=== PATIENT | female | born 1935 | race Two or more races ===

== ENCOUNTER 2016-10-06 19:34 | Inpatient (IN) | payer MEDICARE, OTHER ==
[~2016-10-06] VITALS: Ht 152.4 cm; Wt 54.9 kg
[2016-10-06] MEDS ORDERED: HALOPERIDOL LACTATE INJ 5 MG/ML VIAL ONE (19:45)
[2016-10-06] MEDS ORDERED: diphenhydrAMINE HCL 50 MG/ML VIAL ONE (19:45)
--- NOTE | 2016-10-06 19:45 | NUR ---
PT BB AMBULANCE FROM; INCREASE AGGITATION X 3 DAYS. PT REFUSES TO ANSWER QUESTIONS. RR EVEN AND UNLABORED. NO SOB NOTED. NAD NOTED. NO NVD AT THIS TIME. PT NOT DIAPHORETIC. PT GOWNED AND PLACED ON MONITOR WAITING FOR MD SHELLEY.
[2016-10-06] MEDS ORDERED: LORAZEPAM INJ 2 MG/ML VIAL ONE (19:46)
--- NOTE | 2016-10-06 19:46 | NUR ---
PT NOTED SCREAMING AND YELLING SPEAKING TO "SARAN"
--- NOTE | 2016-10-06 19:57 | NUR ---
LAB AT BEDSIDE FOR BLOOD DRAW.
[2016-10-06 20:00] LABS: BASOPHILS # (AUTO) 0.1 /CMM (0.0-0.2); BASOPHILS % (AUTO) 0.9 % (0.0-2.0); EOSINOPHILS % (AUTO) 0.2 % (0.0-6.0); HEMATOCRIT 40 % (33-45); HEMOGLOBIN 13.8 g/dL (11.5-14.8); LYMPHOCYTES # (AUTO) 2.7 /CMM (0.8-4.8); LYMPHOCYTES % (AUTO) 16.7 % (20.0-44.0); MEAN CORPUSCULAR HEMOGLOBIN 30 PG (26.0-33.0); MEAN CORPUSCULAR HGB CONC 35 g/dl (31.0-36.0); MEAN CORPUSCULAR VOLUME 87 fL (82-100); MONOCYTES # (AUTO) 1.2 /CMM (0.1-1.30); MONOCYTES % (AUTO) 7.4 % (2.0-12.0); NEUTROPHILS # (AUTO) 12.4 /CMM (1.8-8.9); NEUTROPHILS % (AUTO) 74.8 % (43.0-81.0); PLATELET COUNT (AUTO) 324 /CMM (150-450); RDW COEFFICIENT OF VARIATION 12.2 (11.5-15.0); RED BLOOD CELL COUNT(AUTO) 4.58 MIL/uL (4.0-5.2); WHITE BLOOD COUNT (AUTO) 16.4 K/uL (4.3-11.0)
[2016-10-06] MEDS ORDERED: HALOPERIDOL LACTATE INJ 5 MG/ML VIAL IM ONE (20:00)
[2016-10-06] MEDS ORDERED: diphenhydrAMINE HCL 50 MG/ML VIAL IM ONE (20:00)
[2016-10-06] MEDS ORDERED: LORAZEPAM INJ 2 MG/ML VIAL IM ONE (20:00)
[2016-10-06 20:07] LABS: CARBON DIOXIDE 23 mmol/L (21-32); CHLORIDE 99 mmol/L (98-107); CREATININE 1.6 mg/dL (0.6-1.3); GLUCOSE 180 mg/dL (74-106); POTASSIUM 4.1 mmol/L (3.5-5.1); SODIUM SERUM 140 mmol/L (136-145); UREA NITROGEN, BLOOD 31 mg/dL (7-18)
--- NOTE | 2016-10-06 20:07 | NUR ---
URINE COLLECTED. CALLED LAB FOR FELT FINISHER.
[2016-10-06 20:13] LABS: ALANINE AMINOTRANSFERASE 21 U/L (12-78); ALBUMIN 4.3 g/dL (3.4-5.0); ALCOHOL, BLOOD < 3 mg/dL (0-0); ALKALINE PHOSPHATASE 77 U/L (46-116); ASPARTATE AMINOTRANSFERASE 25 U/L (15-37); BILIRUBIN,DIRECT 0.2 mg/dL (0.0-0.2); BILIRUBIN,TOTAL 1.1 mg/dL (0.2-1.0); TOTAL PROTEIN, SERUM 8.6 g/dL (6.4-8.2)
[2016-10-06 20:17] LABS: APPEARANCE,URINE Turbid (CLEAR); BLOOD, URINE Large Ery/uL (NEGATIVE); COLOR,URINE Red (YELLOW); KETONES,URINE 15 (NEGATIVE); LEUKOCYTE ESTERASE ,URINE Moderate (NEGATIVE); NITRITE, URINE Negative (NEGATIVE); PH,URINE 8.5 (5.0-8.0); PROTEIN,URINE >=300 mg/dl (NEGATIVE); UGLUCOSE Negative (NEGATIVE); UROBILINOGEN,URINE 0.2 EU/dL (0.2)
[2016-10-06 20:17] LABS: ACETAMINOPHEN < 2 ug/ml (10-30); SALICYLATE < 2.8 mg/dL (2.8-20.0)
[2016-10-06 20:24] LABS: BILIRUBIN,URINE SMALL (NEGATIVE)
[2016-10-06] MEDS ORDERED: ZOLP5TAB2 PO (20:24)
[2016-10-06] MEDS ORDERED: ONDA4TAB5 PO (20:24)
[2016-10-06] MEDS ORDERED: MECL12.582 PO (20:24)
[2016-10-06] MEDS ORDERED: NYST15CR TP (20:24)
[2016-10-06] MEDS ORDERED: CLON0.1T PO (20:24)
[2016-10-06] MEDS ORDERED: ACET-868 PO (20:24)
--- NOTE | 2016-10-06 20:24 | NUR ---
PT APPEARS TO BE CALM AND RELAX AT THIS TIME. VSS
[2016-10-06 20:34] LABS: BACTERIA,URINE Moderate /HPF (None Seen); RBC,URINE TOO NUMEROUS TO COUN /HPF (0-2); SQUAMOUS EPITHELIAL CELL,UR Many /HPF (None Seen); WBC,URINE 21-50 /HPF (0-3)
[2016-10-06] MEDS ORDERED: CEFTRIAXONE 1GM BAG (ER ONLY) 50 ML IV ONE ×2 (21:30→22:02)
--- NOTE | 2016-10-06 22:01 | NUR ---
IV STARTED ON RIGHT WRIST 20G, LABS/ BLOOD CULTURES COLLECTED.
--- NOTE | 2016-10-06 22:01 | NUR ---
PT NOTED RELAX. AOX2
[2016-10-06] MEDS ORDERED: IV SET PRIMARY PUMP SET 1 EA INFUS.SET MC ONE (22:02)
--- NOTE | 2016-10-06 23:04 | NUR ---
Patient is resting comfortably in bed with eyes closed. Easily aroused. VSS
--- NOTE | 2016-10-06 23:08 | NUR ---
IV ROCPEHIN GIVEN ORDERED, ALLERGIES UPDATED AFTER MEDICATION ADMIN, INFORMED DR. ROSALES OF UPDATES ALLERGIES. PT WITH NO S/S ALLERGIC REACTION . NO SOB NOTED. VSS. PT APPEARS TO BE COMFORTABLE.
--- NOTE | 2016-10-06 23:09 | NUR ---
ART AT BEDSIDE FOR EVAL.
--- NOTE | 2016-10-06 23:10 | NUR ---
IV removed. Catheter intact and site benign. Pressure and 4x4 applied to site. No bleeding noted.
--- NOTE | 2016-10-06 23:35 | NUR ---
PT ASSIGNED TO [facility]IAH [facility]
--- NOTE | 2016-10-06 23:44 | NUR ---
REPORT GIVEN TO MARIAH MOFFETT FOR CONTINUE OF CARE
--- NOTE | 2016-10-07 00:07 | NUR ---
PT TRASNFERED VIA ILEANA LEMUS
[2016-10-07] MEDS ORDERED: MAG HYDROX/AL HYDROX/SIMETH 30 ML UDC PO PRN (00:30)
[2016-10-07] MEDS ORDERED: MAGNESIUM HYDROXIDE 30 ML UDC PO PRN (00:30)
--- NOTE | 2016-10-07 01:40 | NUR ---
GPS/RN NOTE: ADMITTED FROM [facility] ER, INITIALLY CAME FROM [facility], ARRIVED TO THE UNIT AROUND 0015 BROUGHT IN BY I MALE ER STAFF. PLACED PATIENT COMFORTABLY IN BED. SHOWS NO S/S OF ANY PAIN AT THIS TIME. RESPIRATION EVEN, BREATHING PATTERN NON-LABORED. NO APPARENT DISTRESS NOTED. PATIENT ADMITTED ON 5150 HOLD FOR GD. PER HOLD PATIENT HAVE INCREASING AGITATION AND COMBATIVENESS. UPON FACE TO FACE, PATIENT KNOWS HER NAME ONLY, CONFUSED, AGITATED,, DISORGANIZED, FIGHTING WITH NURSES, SCREAMING. THE 5150 WAS REVIEWED AND APPEARS TO REFLECT THE PRESENTATION OF THE PATIENT. AWAKE, ALERT, CONFUSED, KNOWS ONLY HER NAME. BELONGINGS WERE INVENTORIED AND CHECKED FOR CONTRABAND. PATIENT IS UNDER THE PSYCHIATRIC CARE OF DR. RUIZ, AND UNDER THE MEDICAL CARE OF DR. CAT. VALUABLES WERE CHECKED IN TO SAFE. SKIN ASSESSMENT DONE/PHOTO TAKEN. BED LOCKED AND PLACED ON LOWER POSITION. WILL CONTINUE TO MONITOR Q 15 MINS. TO MAINTAIN SAFETY.
[2016-10-07] MEDS ORDERED: ONDANSETRON HCL 4 MG/5 ML SOLUTION PO PRN (03:00)
[2016-10-07] MEDS ORDERED: OLAN5TAB3 PO (03:40)
[2016-10-07] MEDS ORDERED: HYDR-4077 PO (03:40)
[2016-10-07] MEDS ORDERED: CLON-418 PO (03:40)
[2016-10-07] MEDS ORDERED: AMLO5TAB4 PO (03:40)
[2016-10-07] MEDS ORDERED: ESCI5TAB PO (03:40)
[2016-10-07] MEDS ORDERED: QUET25TA PO (03:40)
[2016-10-07] MEDS ORDERED: ASPI81TA2 PO (03:40)
[2016-10-07] MEDS ORDERED: METO25TA6 PO (03:40)
[2016-10-07] MEDS ORDERED: PANT40TA2 PO (03:40)
[2016-10-07] MEDS ORDERED: ACET325T53 PO (03:40)
[2016-10-07] MEDS ORDERED: ZOLP5TAB2 PO (03:40)
[2016-10-07] MEDS ORDERED: ONDA4TAB8 SL (03:40)
[2016-10-07] MEDS ORDERED: MECL12.582 PO (03:40)
[2016-10-07 07:59] LABS: CHOLESTEROL 243 mg/dL (<200); HDL CHOLESTEROL 63 mg/dL (40-60); LDL 150 mg/dL (0-99); TRIGLYCERIDES 87 mg/dL (30-150)
[2016-10-07 08:00] VITALS: BP 105/60
[2016-10-07] MEDS ORDERED: LEVOFLOXACIN (500MG) 500 MG TABLET PO SCH (08:00)
[2016-10-07] MEDS: PANTOPRAZOLE 40 MG TABLET.DR PO SCH (08:48)
[2016-10-07] MEDS: LEVOFLOXACIN (250MG) 250 MG TABLET PO SCH (09:55)
[2016-10-07] MEDS ORDERED: IV NS 0.9% 1,000 ML IV ONE (12:00)
[2016-10-07 12:02] LABS: BASOPHILS % (AUTO) 0.3 % (0.0-2.0); EOSINOPHILS # (AUTO) 0.1 /CMM (0.0-0.7); EOSINOPHILS % (AUTO) 1.4 % (0.0-6.0); HEMATOCRIT 35 % (33-45); HEMOGLOBIN 11.7 g/dL (11.5-14.8); LYMPHOCYTES % (AUTO) 20.6 % (20.0-44.0); MEAN CORPUSCULAR HEMOGLOBIN 30 PG (26.0-33.0); MEAN CORPUSCULAR HGB CONC 34 g/dl (31.0-36.0); MEAN CORPUSCULAR VOLUME 88 fL (82-100); MONOCYTES # (AUTO) 0.9 /CMM (0.1-1.30); MONOCYTES % (AUTO) 9.5 % (2.0-12.0); NEUTROPHILS # (AUTO) 6.5 /CMM (1.8-8.9); NEUTROPHILS % (AUTO) 68.2 % (43.0-81.0); PLATELET COUNT (AUTO) 227 /CMM (150-450); RDW COEFFICIENT OF VARIATION 13.2 (11.5-15.0); RED BLOOD CELL COUNT(AUTO) 3.94 MIL/uL (4.0-5.2); WHITE BLOOD COUNT (AUTO) 9.5 K/uL (4.3-11.0)
[2016-10-07 12:19] LABS: ALBUMIN 3.5 g/dL (3.4-5.0); BILIRUBIN,TOTAL 0.7 mg/dL (0.2-1.0); CALCIUM, SERUM 8.8 mg/dL (8.5-10.1); CREATININE 1.3 mg/dL (0.6-1.3); POTASSIUM 3.2 mmol/L (3.5-5.1); TOTAL PROTEIN, SERUM 7.3 g/dL (6.4-8.2)
[2016-10-07] MEDS ORDERED: ONDANSETRON 4 MG TAB.RAPDIS SL PRN (12:30)
[2016-10-07] MEDS: DIVALPROEX SODIUM 125 MG CAP.SPRINK PO SCH ×3 (12:43→20:45)
[2016-10-07] MEDS: OLANZAPINE 2.5 MG TABLET PO SCH ×4 (12:43→17:04)
[2016-10-07] MEDS: ASPIRIN EC 81 MG TABLET.DR PO SCH (12:50)
[2016-10-07] MEDS: METOPROLOL TARTRATE 25 MG TABLET PO SCH ×2 (12:51→20:30)
[2016-10-07] MEDS: BOOST PLUS FOOD-CHOCLATE 237 ML BOX PO SCH ×2 (13:15→16:35)
--- NOTE | 2016-10-07 13:21 | NUR ---
GPS RN NOTE: NOTIFIED DR CAT PT LAB TROPONIN 0.120 K 3.2 ,BUN, CREATININE PT REFUSED IV FLUIND PT STATED"I CAN DRINK WATER " NEW T.O. ORDER FROM DR CAT KCL 40 MEQ ONCE PO, LOVENOX 40 MG DAILY, AND BOOST TROPONIN RECHECK AT 1700,PT VS STABLE PT EAT 75 % LUNCH AND DRINKING WATER. ORDER PLACED AND CARED OUT,WILL CONTINUE MONITORING FOR SAFETY AND BEHAVIOR Q 15 MIN
[2016-10-07] MEDS ORDERED: POTASSIUM CHLORIDE 20 MEQ TAB.PRT.SR PO ONE (13:30)
[2016-10-07] MEDS: ENOXAPARIN SODIUM 30 MG/0.3 ML DISP.SYRIN SQ SCH (14:03)
--- NOTE | 2016-10-07 14:11 | NUR ---
GPS RN NOTE: NOTIFIED DR RUIZ ELEVATED TROPONIN LEVEL PER MD HOLD MOHAN AND SELENE WILL CONTINUE MONITORING
--- NOTE | 2016-10-07 17:29 | NUR ---
GPS RN NOTE: PATIENT REFUSED BLOOD WORK FOR TROPONIN PT SCREAMING AND YELLING REFUSED MEDICATIONS PO EXPLAIN RISK AND BENEFITS DR STEPHANIA STANFORD
[2016-10-07] MEDS ORDERED: Z GUARD REMEDY 2 OZ OINT TP PRN (18:00)
[2016-10-07 20:41] VITALS: BP 106/61
--- NOTE | 2016-10-07 20:45 | NUR ---
GPS RN NOTE: PATIENT REFUSED MEDICATIONS, SCREAMING, YELLING AND COMBATIVE. EXPLAINED THE RISK AND BENEFITS. OFFERED X 3 ATTEMPTS. PATIENT SPIT OUT THE MEDICATIONS. WILL CONTINUE TO MONITOR [id number] FOR SAFETY
[2016-10-07] MEDS: ATORVASTATIN 10 MG TABLET PO SCH (21:20)
--- NOTE | 2016-10-07 22:30 | NUR ---
GPS RN NOTE: PATIENT CONTINUED TO BE UNCOOPERATIVE, REFUSED CARE, REFUSED MEDICATIONS, REFUSED WATER, REFUSED SNACKS, WILL CONTINUE TO REDIRECT AND WILL CONTINUE TO MONITOR
--- NOTE | 2016-10-08 06:21 | NUR ---
GPS RN NOTE: REDIRECTION PROVIDED AND PATIENT COOPERATED WITH THE LAB DRAW AND FINISHED 2 CUPS OF WATER. WILL CONTINUE TO MONITOR
[2016-10-08 07:17] LABS: BASOPHILS % (AUTO) 0.5 % (0.0-2.0); EOSINOPHILS # (AUTO) 0.1 /CMM (0.0-0.7); EOSINOPHILS % (AUTO) 1.1 % (0.0-6.0); HEMATOCRIT 35 % (33-45); HEMOGLOBIN 11.9 g/dL (11.5-14.8); LYMPHOCYTES # (AUTO) 2.6 /CMM (0.8-4.8); MEAN CORPUSCULAR HEMOGLOBIN 30 PG (26.0-33.0); MEAN CORPUSCULAR HGB CONC 34 g/dl (31.0-36.0); MEAN CORPUSCULAR VOLUME 89 fL (82-100); MONOCYTES # (AUTO) 0.9 /CMM (0.1-1.30); MONOCYTES % (AUTO) 9.2 % (2.0-12.0); NEUTROPHILS # (AUTO) 5.6 /CMM (1.8-8.9); NEUTROPHILS % (AUTO) 61.2 % (43.0-81.0); PLATELET COUNT (AUTO) 251 /CMM (150-450); RED BLOOD CELL COUNT(AUTO) 3.94 MIL/uL (4.0-5.2); WHITE BLOOD COUNT (AUTO) 9.2 K/uL (4.3-11.0)
[2016-10-08] MEDS: PANTOPRAZOLE 40 MG TABLET.DR PO SCH (07:30)
[2016-10-08 08:00] VITALS: BP 152/72
[2016-10-08] MEDS: BOOST PLUS FOOD-CHOCLATE 237 ML BOX PO SCH ×2 (08:00→16:04)
[2016-10-08 08:01] LABS: ALBUMIN 3.7 g/dL (3.4-5.0); BILIRUBIN,TOTAL 0.5 mg/dL (0.2-1.0); CREATININE 1.5 mg/dL (0.6-1.3); POTASSIUM 3.9 mmol/L (3.5-5.1); TOTAL PROTEIN, SERUM 7.9 g/dL (6.4-8.2)
--- NOTE | 2016-10-08 08:57 | NUR ---
RN-CO: Notified Dr Siddiqui regarding result of troponin level- 0.072 and BUN 49. Refusing to eat and medications. MD ordered 1/2 Normal Saline @ 100cc/ hr.. Noted and carried out.
--- NOTE | 2016-10-08 08:58 | NUR ---
RN-CO: Patient was seen and examined by Dr Arboleda( Sanipractic Physician) with orders noted and carried out.
[2016-10-08] MEDS: ASPIRIN EC 81 MG TABLET.DR PO SCH (09:00)
[2016-10-08] MEDS: DIVALPROEX SODIUM 125 MG CAP.SPRINK PO SCH ×2 (09:00→21:35)
[2016-10-08] MEDS: METOPROLOL TARTRATE 25 MG TABLET PO SCH ×2 (09:00→21:36)
[2016-10-08] MEDS ORDERED: IV NS 0.9% 1,000 ML IV ONE (09:00)
[2016-10-08] MEDS ORDERED: PANTOPRAZOLE 40 MG TABLET.DR PO SCH (09:00)
[2016-10-08] MEDS: OLANZAPINE 2.5 MG TABLET PO SCH ×2 (09:00→16:04)
[2016-10-08] MEDS: LEVOFLOXACIN (250MG) 250 MG TABLET PO SCH (09:00)
[2016-10-08] MEDS ORDERED: IV SET PRIMARY PUMP SET 1 EA INFUS.SET MC ONE (09:00)
[2016-10-08] MEDS ORDERED: IV NS 0.9% 1,000 ML BAG IV ONE (09:00)
[2016-10-08] MEDS ORDERED: IV NS 0.9% 1,000 ML IV PRN (09:00)
[2016-10-08] MEDS: ENOXAPARIN SODIUM 30 MG/0.3 ML DISP.SYRIN SQ SCH (09:02)
--- NOTE | 2016-10-08 09:45 | NUR ---
GPS RN NOTE: PATIENT IN BED DISORGANIZED, CONFUSED REFUSING TO EAT AND DRINK REFUSED MEDICATIONS PATIENT TALKING TO SELF VERBALLY ABUSIVE,YELLING AND SCREAMING WHEN APPROACHED. DR CAT AWARE PT LABS IV FLUIDS STARTED WITH 1: SITTER AT THE SIDE FOR SAFETY,FITNESS SERVICES MANAGER DR STRINGER SEEN PT, WILL CONTINUE MONITORING FOR SAFETY AND BEHAVIOR Q 15 MIN
--- NOTE | 2016-10-08 13:26 | NUR ---
GPS RN NOTE: NOTIFIED DR RUIZ PT NOT EATING, DRINKING AND REFUSING MEDICATIONS NO NEW ORDERS AT THIS TIME WILL CONTINUE MONITORING FOR SAFETY AND BEHAVIOR Q 15 MIN
[2016-10-08 16:00] VITALS: BP 139/85
[2016-10-08 21:06] VITALS: BP 170/88
[2016-10-08] MEDS: ATORVASTATIN 10 MG TABLET PO SCH (21:35)
[2016-10-09] MEDS: TEMAZEPAM 7.5 MG CAPSULE PO PRN (00:32)
[2016-10-09] MEDS: PANTOPRAZOLE 40 MG TABLET.DR PO SCH (07:30)
[2016-10-09 08:00] VITALS: BP 150/72
[2016-10-09] MEDS: BOOST PLUS FOOD-CHOCLATE 237 ML BOX PO SCH ×2 (08:00→17:00)
[2016-10-09] MEDS: ASPIRIN EC 81 MG TABLET.DR PO SCH (08:31)
[2016-10-09] MEDS: OLANZAPINE 2.5 MG TABLET PO SCH ×2 (08:32→17:00)
[2016-10-09] MEDS: METOPROLOL TARTRATE 25 MG TABLET PO SCH ×2 (08:32→20:38)
[2016-10-09] MEDS: LEVOFLOXACIN (250MG) 250 MG TABLET PO SCH (08:32)
[2016-10-09] MEDS: DIVALPROEX SODIUM 125 MG CAP.SPRINK PO SCH ×2 (08:32→20:37)
[2016-10-09] MEDS: ENOXAPARIN SODIUM 30 MG/0.3 ML DISP.SYRIN SQ SCH (08:34)
[2016-10-09] MEDS: VALSARTAN 80 MG TABLET PO SCH (10:30)
--- NOTE | 2016-10-09 13:28 | NUR ---
GPS RN NOTE: PATIENT AWAKE , CONFUSED, PARANOID, EASILY AGITATED, GUARDED, COMBATIVE, REFUSED MEDICATIONS REGARDLESS OF EXPLANATIONS, OFFERED X 3 BUT STILL REFUSED, NO SOB, NO S/S DISTRESS, DENIES PAIN OR DISCOMFORT, WILL CONTINUE MONITORING FOR SAFETY AND BEHAVIOR Q 15 MIN
[2016-10-09 16:00] VITALS: BP 161/85
--- NOTE | 2016-10-09 16:42 | NUR ---
Initial discharge plan: [place] [place] [address] . GREG attempted to speak with admission but no one was available. GREG will try again. GREG will also speak with pt's daughter Marina [phone] to confirm if pt. is able to return. GREG will follow up with MD and will help form safe and proper discharge. Addendum: 10/10/16 at 1216 by KE GARZA Spoke with Susi from facility and pt. is able to return.
--- NOTE | 2016-10-09 19:30 | NUR ---
GPS RN NOTE, RECEIVED PATIENT AWAKE AND IN BED, NO S/S OR COMPLAINTS OF PAIN AT THIS TIME. PATIENT IS DISPLAYING NO S/S OF APPARENT DISTRESS AT THIS TIME. PATIENT BREATHING IS UNLABORED WITH EQUAL RISE AND FALL OF THE CHEST. PATIENT IS ALERT AND ORIENTED X 1-2 ON ROOM AIR WITH A SPO2 95%. PATIENT SELECTIVE WITH MEDICATION, DEPRESSED, UNCOOPERATIVE, , CONFUSED AT TIMES, AND NEEDS REORIENTATION. PATIENT DENIES SUICIDE AND HOMICIDAL IDEATIONS AT THIS TIME. PATIENT ASSISTED WITH TURNING AND REPOSITIONING Q2HR AND PRN FOR COMFORT AND CIRCULATION. PATIENT HAS NO NEEDS AT THIS TIME. PATIENT EDUCATED ON THE USE OF THE CALL ACEVES. PATIENT BED SIDE RAILS UP X2 FOR SAFETY, BED IS LOCKED AND LOW WILL CONTINUE TO MONITOR AND MAINTAIN SAFETY.
[2016-10-09 20:00] VITALS: BP 157/80
[2016-10-09] MEDS: ATORVASTATIN 10 MG TABLET PO SCH (21:42)
[2016-10-10 07:45] LABS: BASOPHILS % (AUTO) 0.5 % (0.0-2.0); EOSINOPHILS # (AUTO) 0.1 /CMM (0.0-0.7); EOSINOPHILS % (AUTO) 1.8 % (0.0-6.0); HEMATOCRIT 35 % (33-45); HEMOGLOBIN 11.8 g/dL (11.5-14.8); LYMPHOCYTES # (AUTO) 1.3 /CMM (0.8-4.8); LYMPHOCYTES % (AUTO) 21.4 % (20.0-44.0); MEAN CORPUSCULAR HEMOGLOBIN 30 PG (26.0-33.0); MEAN CORPUSCULAR HGB CONC 34 g/dl (31.0-36.0); MEAN CORPUSCULAR VOLUME 89 fL (82-100); MONOCYTES # (AUTO) 0.6 /CMM (0.1-1.30); MONOCYTES % (AUTO) 9.2 % (2.0-12.0); NEUTROPHILS # (AUTO) 4.1 /CMM (1.8-8.9); NEUTROPHILS % (AUTO) 67.1 % (43.0-81.0); PLATELET COUNT (AUTO) 262 /CMM (150-450); RDW COEFFICIENT OF VARIATION 13.3 (11.5-15.0); RED BLOOD CELL COUNT(AUTO) 3.95 MIL/uL (4.0-5.2); WHITE BLOOD COUNT (AUTO) 6.1 K/uL (4.3-11.0)
[2016-10-10 08:00] VITALS: BP 149/93
[2016-10-10 08:03] LABS: ALANINE AMINOTRANSFERASE 29 U/L (12-78); ALBUMIN 3.7 g/dL (3.4-5.0); ALKALINE PHOSPHATASE 62 U/L (46-116); ASPARTATE AMINOTRANSFERASE 20 U/L (15-37); BILIRUBIN,TOTAL 0.4 mg/dL (0.2-1.0); CALCIUM, SERUM 9.5 mg/dL (8.5-10.1); CARBON DIOXIDE 30 mmol/L (21-32); CHLORIDE 111 mmol/L (98-107); GLUCOSE 139 mg/dL (74-106); MAGNESIUM 2.5 mg/dL (1.8-2.4); PHOSPHORUS 4.1 mg/dL (2.5-4.9); POTASSIUM 4.2 mmol/L (3.5-5.1); SODIUM SERUM 148 mmol/L (136-145); TOTAL PROTEIN, SERUM 7.8 g/dL (6.4-8.2); TROPONIN I 0.027 ng/mL (0.00-0.056); UREA NITROGEN, BLOOD 44 mg/dL (7-18)
[2016-10-10] MEDS: PANTOPRAZOLE 40 MG TABLET.DR PO SCH (08:30)
[2016-10-10] MEDS: BOOST PLUS FOOD-CHOCLATE 237 ML BOX PO SCH ×2 (08:30→16:48)
[2016-10-10] MEDS: METOPROLOL TARTRATE 25 MG TABLET PO SCH ×2 (08:31→21:04)
[2016-10-10] MEDS: ASPIRIN EC 81 MG TABLET.DR PO SCH (08:31)
[2016-10-10] MEDS: OLANZAPINE 2.5 MG TABLET PO SCH ×2 (08:31→16:52)
[2016-10-10] MEDS: DIVALPROEX SODIUM 125 MG CAP.SPRINK PO SCH ×2 (08:31→21:03)
[2016-10-10] MEDS: VALSARTAN 80 MG TABLET PO SCH (08:32)
[2016-10-10] MEDS: LEVOFLOXACIN (250MG) 250 MG TABLET PO SCH (08:32)
[2016-10-10] MEDS: ENOXAPARIN SODIUM 30 MG/0.3 ML DISP.SYRIN SQ SCH (08:33)
--- NOTE | 2016-10-10 12:15 | NUR ---
[id number]: NOTIFIED DR. CAT ABOUT LAB VALUES FOR TODAY 10/10/16: RBC= 3.95, NA= 148, CHLORIDE= 111, BUN= 44, MAGNESIUM= 2.5. NO NEW ORDERS GIVEN AT THIS TIME. Addendum: 10/10/16 at 1713 by ISAIAH WHITE RN DR. CAT ENCOURAGE FLUID INTAKE
[2016-10-10] MEDS: clonazePAM 0.5 MG TABLET PO PRN (14:54)
--- NOTE | 2016-10-10 14:54 | NUR ---
LHJ-[id number]: GAVE KLONOPIN 0.5 MG PO DUE TO SEVERE ANXIETY UPON PT REQUEST AND WILL CONTINUE TO MONITOR FOR EFFECTIVENESS OF MEDICATION
[2016-10-10 16:18] VITALS: BP 138/73
[2016-10-10] MEDS: ACETAMINOPHEN 325 MG TABLET PO PRN (16:48)
--- NOTE | 2016-10-10 16:48 | NUR ---
ERI-RT-[id number]: GAVE TYLENOL 650 MG PO DUE TO GENERALIZED PAIN 5/10 UPON PT REQUEST AND WILL CONTINUE TO MONITOR FOR EFFECTIVENESS OF MEDICATION
[2016-10-10 20:00] VITALS: BP 112/63
[2016-10-10 20:27] VITALS: BP 112/63
[2016-10-10] MEDS: ATORVASTATIN 10 MG TABLET PO SCH (21:03)
[2016-10-11] MEDS: BOOST PLUS FOOD-CHOCLATE 237 ML BOX PO SCH ×2 (08:44→17:22)
[2016-10-11] MEDS: DIVALPROEX SODIUM 125 MG CAP.SPRINK PO SCH ×2 (08:47→16:55)
[2016-10-11] MEDS: METOPROLOL TARTRATE 25 MG TABLET PO SCH ×2 (08:47→20:31)
[2016-10-11] MEDS: LEVOFLOXACIN (250MG) 250 MG TABLET PO SCH (08:47)
[2016-10-11] MEDS: OLANZAPINE 2.5 MG TABLET PO SCH ×3 (08:47→16:57)
[2016-10-11] MEDS: VALSARTAN 80 MG TABLET PO SCH (08:48)
[2016-10-11] MEDS: ASPIRIN EC 81 MG TABLET.DR PO SCH (08:48)
[2016-10-11] MEDS: PANTOPRAZOLE 40 MG TABLET.DR PO SCH (08:48)
[2016-10-11 08:53] VITALS: BP 166/78
[2016-10-11] MEDS: ENOXAPARIN SODIUM 30 MG/0.3 ML DISP.SYRIN SQ SCH (09:11)
[2016-10-11 16:23] VITALS: BP 141/74
[2016-10-11 20:00] VITALS: BP 163/79
[2016-10-11] MEDS: ATORVASTATIN 10 MG TABLET PO SCH (20:31)
[2016-10-11] MEDS: TEMAZEPAM 7.5 MG CAPSULE PO PRN (20:32)
--- NOTE | 2016-10-11 20:32 | NUR ---
GPS/RN NOTE: PATIENT REQUESTING FOR HER NIGHT MEDS. PATIENT IS NOISY, SCREAMING. TEMAZEPAM 7.5 MG CAP 1 PO GIVEN.
--- NOTE | 2016-10-12 03:41 | NUR ---
GPS/RN NOTE: AWAKE, SCREAMING, OFFERED KLONOPIN, PATIENT RESPONDED, " NO."
[2016-10-12 06:30] LABS: BASOPHILS % (AUTO) 0.5 % (0.0-2.0); EOSINOPHILS # (AUTO) 0.4 /CMM (0.0-0.7); EOSINOPHILS % (AUTO) 4.2 % (0.0-6.0); HEMATOCRIT 34 % (33-45); HEMOGLOBIN 11.4 g/dL (11.5-14.8); LYMPHOCYTES # (AUTO) 3.8 /CMM (0.8-4.8); MEAN CORPUSCULAR HEMOGLOBIN 30 PG (26.0-33.0); MEAN CORPUSCULAR HGB CONC 33 g/dl (31.0-36.0); MEAN CORPUSCULAR VOLUME 89 fL (82-100); MONOCYTES # (AUTO) 0.8 /CMM (0.1-1.30); MONOCYTES % (AUTO) 7.8 % (2.0-12.0); NEUTROPHILS # (AUTO) 4.9 /CMM (1.8-8.9); NEUTROPHILS % (AUTO) 49.5 % (43.0-81.0); PLATELET COUNT (AUTO) 262 /CMM (150-450); RDW COEFFICIENT OF VARIATION 12.9 (11.5-15.0); RED BLOOD CELL COUNT(AUTO) 3.84 MIL/uL (4.0-5.2); WHITE BLOOD COUNT (AUTO) 9.9 K/uL (4.3-11.0)
[2016-10-12 06:55] LABS: CALCIUM, SERUM 9.1 mg/dL (8.5-10.1); CARBON DIOXIDE 29 mmol/L (21-32); CHLORIDE 110 mmol/L (98-107); CREATININE 1.1 mg/dL (0.6-1.3); GLUCOSE 115 mg/dL (74-106); POTASSIUM 4.4 mmol/L (3.5-5.1); SODIUM SERUM 147 mmol/L (136-145); UREA NITROGEN, BLOOD 34 mg/dL (7-18)
[2016-10-12 08:00] VITALS: BP 124/68
[2016-10-12] MEDS: BOOST PLUS FOOD-CHOCLATE 237 ML BOX PO SCH ×2 (08:10→17:17)
[2016-10-12] MEDS: DIVALPROEX SODIUM 125 MG CAP.SPRINK PO SCH ×3 (08:11→17:00)
[2016-10-12] MEDS: OLANZAPINE 2.5 MG TABLET PO SCH ×3 (08:12→17:00)
[2016-10-12] MEDS: ASPIRIN EC 81 MG TABLET.DR PO SCH (08:12)
[2016-10-12] MEDS: PANTOPRAZOLE 40 MG TABLET.DR PO SCH (08:12)
[2016-10-12] MEDS: VALSARTAN 80 MG TABLET PO SCH (08:12)
[2016-10-12] MEDS: METOPROLOL TARTRATE 25 MG TABLET PO SCH ×2 (08:12→20:44)
[2016-10-12] MEDS: LEVOFLOXACIN (250MG) 250 MG TABLET PO SCH (08:12)
[2016-10-12] MEDS: ENOXAPARIN SODIUM 30 MG/0.3 ML DISP.SYRIN SQ SCH (08:26)
[2016-10-12 16:00] VITALS: BP 129/77
--- NOTE | 2016-10-12 17:17 | NUR ---
Pt. refused to take Depakote sprinkle and Zyprexa po, explained on the importance and offered 3x and pt. still refusing and said "Get out from me". Dr. Lucero is aware.
[2016-10-12] MEDS: CEPHALEXIN MONOHYDRATE 250 MG CAPSULE PO SCH (18:00)
[2016-10-12 20:00] VITALS: BP 142/90
[2016-10-12] MEDS: ATORVASTATIN 10 MG TABLET PO SCH (20:44)
[2016-10-13] MEDS: CEPHALEXIN MONOHYDRATE 250 MG CAPSULE PO SCH ×2 (06:32→18:19)
--- NOTE | 2016-10-13 07:30 | NUR ---
RECEIVED PT. ALERT AND ORIENTED X2. NO SPECIFIC COMPLAINTS OFFERED.
[2016-10-13 08:00] VITALS: BP 148/67
--- NOTE | 2016-10-13 09:00 | NUR ---
YELLING ON WAY TO DINING ROOM.CALMED DOWN AND REASSURED.
[2016-10-13] MEDS: DIVALPROEX SODIUM 125 MG CAP.SPRINK PO SCH ×2 (09:40→18:19)
[2016-10-13] MEDS: ASPIRIN EC 81 MG TABLET.DR PO SCH (09:40)
[2016-10-13] MEDS: OLANZAPINE 2.5 MG TABLET PO SCH ×3 (09:40→18:19)
[2016-10-13] MEDS: PANTOPRAZOLE 40 MG TABLET.DR PO SCH (09:40)
[2016-10-13] MEDS: ENOXAPARIN SODIUM 30 MG/0.3 ML DISP.SYRIN SQ SCH (09:42)
[2016-10-13] MEDS: METOPROLOL TARTRATE 25 MG TABLET PO SCH ×2 (09:51→21:04)
[2016-10-13] MEDS: VALSARTAN 80 MG TABLET PO SCH (09:51)
[2016-10-13] MEDS: BOOST PLUS FOOD-CHOCLATE 237 ML BOX PO SCH ×2 (09:51→18:26)
--- NOTE | 2016-10-13 11:30 | NUR ---
DR. REY IN TO SEE PT.
--- NOTE | 2016-10-13 13:30 | NUR ---
IN DINING RM. IN [facility] CHAIR FOR SEVERAL HRS.
--- NOTE | 2016-10-13 15:30 | NUR ---
DR. CAT IN TO SEE PT.
[2016-10-13 15:59] VITALS: BP 128/57
--- NOTE | 2016-10-13 18:00 | NUR ---
NO CHANGE IN STATUS.
[2016-10-13 20:00] VITALS: BP 130/69
--- NOTE | 2016-10-13 20:00 | NUR ---
Gps/Rn notes patient in bed, asleep but arousable. no s/s of sob or distress. provide and offered fluids. will monitor any s/s of atb adverse reaction,
[2016-10-13] MEDS: ATORVASTATIN 10 MG TABLET PO SCH (21:04)
[2016-10-14] MEDS: ACETAMINOPHEN 325 MG TABLET PO PRN (01:20)
[2016-10-14] MEDS: TEMAZEPAM 7.5 MG CAPSULE PO PRN (01:20)
--- NOTE | 2016-10-14 01:20 | NUR ---
Gps/Rn notes patient requesting for medication to sleep. and pain medication for back pain. will continue to monitor and pain effectiveness.
[2016-10-14] MEDS: CEPHALEXIN MONOHYDRATE 250 MG CAPSULE PO SCH ×2 (06:10→17:17)
[2016-10-14] MEDS: PANTOPRAZOLE 40 MG TABLET.DR PO SCH (07:57)
[2016-10-14 08:00] VITALS: BP 145/73
[2016-10-14] MEDS: DIVALPROEX SODIUM 125 MG CAP.SPRINK PO SCH ×2 (08:05→16:05)
[2016-10-14] MEDS: OLANZAPINE 2.5 MG TABLET PO SCH ×3 (08:05→16:05)
[2016-10-14] MEDS: ASPIRIN EC 81 MG TABLET.DR PO SCH (08:05)
[2016-10-14] MEDS: METOPROLOL TARTRATE 25 MG TABLET PO SCH ×2 (08:06→21:26)
[2016-10-14] MEDS: VALSARTAN 80 MG TABLET PO SCH (08:07)
[2016-10-14] MEDS: BOOST PLUS FOOD-CHOCLATE 237 ML BOX PO SCH ×2 (08:08→16:12)
--- NOTE | 2016-10-14 10:30 | NUR ---
[id number]: NOTIFIED DR. CAT ABOUT LAB VALUES ON 10/12/16: RBC= 3.84, HGB= 11.4, NA= 147, YVEHJBCC=693, BUN= 34. DR. CAT ORDERED CBC AND BMP FOR TOMORROW ON 10/15/16
[2016-10-14 16:04] VITALS: BP 144/72
--- NOTE | 2016-10-14 17:10 | NUR ---
[id number]: NOTIFIED DR. CAT AND DR. REY ABOUT EKG RESULTS AND NO NEW ORDERS GIVEN AT THIS TIME
[2016-10-14 20:35] VITALS: BP 162/70
[2016-10-14] MEDS: ATORVASTATIN 10 MG TABLET PO SCH (21:26)
[2016-10-14 23:00] VITALS: BP 136/72
[2016-10-15] MEDS: CEPHALEXIN MONOHYDRATE 250 MG CAPSULE PO SCH ×2 (05:43→17:18)
[2016-10-15] MEDS: PANTOPRAZOLE 40 MG TABLET.DR PO SCH (08:02)
[2016-10-15] MEDS: ASPIRIN EC 81 MG TABLET.DR PO SCH (08:02)
[2016-10-15] MEDS: DIVALPROEX SODIUM 125 MG CAP.SPRINK PO SCH ×2 (08:03→16:17)
[2016-10-15] MEDS: OLANZAPINE 2.5 MG TABLET PO SCH ×2 (08:04→16:18)
[2016-10-15] MEDS: METOPROLOL TARTRATE 25 MG TABLET PO SCH ×2 (08:07→21:52)
[2016-10-15] MEDS: VALSARTAN 80 MG TABLET PO SCH (08:08)
[2016-10-15] MEDS: BOOST PLUS FOOD-CHOCLATE 237 ML BOX PO SCH ×2 (08:17→16:26)
[2016-10-15 16:18] VITALS: BP 152/74
[2016-10-15 18:19] LABS: BASOPHILS % (AUTO) 0.3 % (0.0-2.0); EOSINOPHILS # (AUTO) 0.3 /CMM (0.0-0.7); EOSINOPHILS % (AUTO) 3.4 % (0.0-6.0); HEMATOCRIT 36 % (33-45); HEMOGLOBIN 12.1 g/dL (11.5-14.8); LYMPHOCYTES % (AUTO) 27.4 % (20.0-44.0); MEAN CORPUSCULAR HEMOGLOBIN 30 PG (26.0-33.0); MEAN CORPUSCULAR HGB CONC 34 g/dl (31.0-36.0); MEAN CORPUSCULAR VOLUME 88 fL (82-100); MONOCYTES # (AUTO) 0.6 /CMM (0.1-1.30); MONOCYTES % (AUTO) 7.5 % (2.0-12.0); NEUTROPHILS # (AUTO) 4.6 /CMM (1.8-8.9); NEUTROPHILS % (AUTO) 61.4 % (43.0-81.0); PLATELET COUNT (AUTO) 252 /CMM (150-450); RDW COEFFICIENT OF VARIATION 12.3 (11.5-15.0); RED BLOOD CELL COUNT(AUTO) 4.02 MIL/uL (4.0-5.2); WHITE BLOOD COUNT (AUTO) 7.5 K/uL (4.3-11.0)
[2016-10-15 18:30] LABS: CARBON DIOXIDE 30 mmol/L (21-32); CHLORIDE 105 mmol/L (98-107); GLUCOSE 154 mg/dL (74-106); POTASSIUM 4.5 mmol/L (3.5-5.1); SODIUM SERUM 141 mmol/L (136-145); UREA NITROGEN, BLOOD 25 mg/dL (7-18)
[2016-10-15] MEDS: DOCUSATE SODIUM 100 MG CAPSULE PO SCH (19:58)
[2016-10-15] MEDS: LACTULOSE 10 G/15 ML UDC (PYXIS) PO SCH (19:59)
[2016-10-15 20:29] VITALS: BP 153/90
[2016-10-15] MEDS: ATORVASTATIN 10 MG TABLET PO SCH (21:52)
[2016-10-15] MEDS: TEMAZEPAM 7.5 MG CAPSULE PO PRN (21:55)
[2016-10-16] MEDS: ACETAMINOPHEN 325 MG TABLET PO PRN ×2 (01:46→21:34)
[2016-10-16] MEDS: clonazePAM 0.5 MG TABLET PO PRN (02:50)
[2016-10-16] MEDS: CEPHALEXIN MONOHYDRATE 250 MG CAPSULE PO SCH ×2 (06:36→17:05)
[2016-10-16] MEDS: PANTOPRAZOLE 40 MG TABLET.DR PO SCH (07:41)
[2016-10-16 08:00] VITALS: BP 132/61
[2016-10-16] MEDS: METOPROLOL TARTRATE 25 MG TABLET PO SCH ×2 (08:31→21:35)
[2016-10-16] MEDS: ASPIRIN EC 81 MG TABLET.DR PO SCH (08:32)
[2016-10-16] MEDS: DIVALPROEX SODIUM 125 MG CAP.SPRINK PO SCH ×2 (08:32→17:06)
[2016-10-16] MEDS: OLANZAPINE 2.5 MG TABLET PO SCH ×2 (08:32→17:05)
[2016-10-16] MEDS: DOCUSATE SODIUM 100 MG CAPSULE PO SCH ×2 (08:32→17:05)
[2016-10-16] MEDS: VALSARTAN 80 MG TABLET PO SCH (08:33)
[2016-10-16] MEDS: BOOST PLUS FOOD-CHOCLATE 237 ML BOX PO SCH ×2 (08:34→17:09)
[2016-10-16] MEDS: LACTULOSE 10 G/15 ML UDC (PYXIS) PO SCH ×2 (10:38→17:05)
[2016-10-16 16:00] VITALS: BP 103/52
[2016-10-16 19:53] VITALS: BP 112/48
[2016-10-16] MEDS: ATORVASTATIN 10 MG TABLET PO SCH (21:34)
[2016-10-16] MEDS: TEMAZEPAM 7.5 MG CAPSULE PO PRN (21:36)
--- NOTE | 2016-10-17 | NUR ---
GPS RN NOTES: OBSERVED PATIENT TO BE ANXIOUS. SHE IS CONSTANTLY TALKING ABOUT HER BOWEL MOVEMENTS. CHECKED PATIENT'S BLOOD PRESSURE- 100/58 HR-60. KLONOPIN NOT GIVEN PATIENTS VITALS ARE SOMEHOW LOW. WASTED KLONOPIN MEDICATION ON THE PYXIS. STAYED WITH THE PATIENT AND ENCOURAGED HER TO VERBALIZE HER FEELINGS AND CONCERNS TO LOWER DOWN HER ANXIETY LEVEL. ASSURED HER OF THE NURSES PRESENCE. ASSISTED PATIENT WITH HER NEEDS. KEPT HER WARM AND DRY. PLACED CALL ACEVES WITHIN HER REACH. WILL CONTINUE TO MONITOR PATIENT FOR MOOD SAFETY AND BEHAVIOR.
[2016-10-17] MEDS: CEPHALEXIN MONOHYDRATE 250 MG CAPSULE PO SCH ×2 (06:12→15:55)
[2016-10-17 08:00] VITALS: BP 131/52
[2016-10-17] MEDS: LACTULOSE 10 G/15 ML UDC (PYXIS) PO SCH ×2 (08:10→15:56)
[2016-10-17] MEDS: DIVALPROEX SODIUM 125 MG CAP.SPRINK PO SCH ×3 (08:11→15:55)
[2016-10-17] MEDS: OLANZAPINE 2.5 MG TABLET PO SCH ×2 (08:11→15:55)
[2016-10-17] MEDS: METOPROLOL TARTRATE 25 MG TABLET PO SCH (08:11)
[2016-10-17] MEDS: ASPIRIN EC 81 MG TABLET.DR PO SCH (08:11)
[2016-10-17] MEDS: VALSARTAN 80 MG TABLET PO SCH (08:11)
[2016-10-17] MEDS: PANTOPRAZOLE 40 MG TABLET.DR PO SCH (08:12)
[2016-10-17] MEDS: DOCUSATE SODIUM 100 MG CAPSULE PO SCH ×2 (08:12→15:54)
[2016-10-17] MEDS: BOOST PLUS FOOD-CHOCLATE 237 ML BOX PO SCH ×2 (08:13→15:54)
[2016-10-17] MEDS: clonazePAM 0.5 MG TABLET PO PRN (12:00)
--- NOTE | 2016-10-17 14:13 | NUR ---
Pt. was referred and accepted to [facility] [address], [place] [address] but medical doctor requested other facilities to be faxed.
--- NOTE | 2016-10-17 14:14 | NUR ---
Pt was referred and accepted to [facility] [id number] [facility] [place] [address]; per Michelle from facility.
--- NOTE | 2016-10-17 14:15 | NUR ---
Discharge note: Pt. will discharge to [facility] [address] [facility] [place] [address]; via [facility]. Pt's daughter, Marina [phone] has been notified and agreed with the discharge plan. Pt. is calm and cooperative and denies suicidal/homicidal ideations. Pt. will be followed by Dr. Siddiqui Leon [phone] and Krishna Dsouza.[phone]. Discharge paperwork has been signed and discharge instructions will be provided to the accepting facility.
[2016-10-17 15:20] VITALS: BP 124/62
[2016-10-17 16:00] VITALS: BP 114/49
--- NOTE | 2016-10-17 17:19 | NUR ---
pt discharge today by dr. Lucero. furnace fitter dr. bro aware and agrees with discharge placement. pt going to [facility] [id number] [facility] [place] [address]; via [facility]. Pt's daughter, Marina [phone] has been notified and agreed with the discharge plan. Report given to receiving nurse, ALEISHA Mtz. Pt is alert oriented x 1 and ambulatory. she is calm and cooperative. no behavioral problem noted. no acute distress noted. exit care and medication reconciliation completed. skin assessment and pictures of wound taken. pt has belongings on the checklist but unable to located any of it. pt left in stable condition.
== END 2016-10-17 17:04 | DRG 885 ==
LOC: ER 19:38 → GPS 23:45
PROVIDERS: ADMIT Psychiatry & Neurology Psychiatry; ATTEND Internal Medicine
DX: F39 Unspecified mood [affective] disorder (principal); I11.0 Hypertensive heart disease with heart failure; I21.4 Non-ST elevation (NSTEMI) myocardial infarction; N39.0 Urinary tract infection, site not specified; E86.0 Dehydration; E87.6 Hypokalemia; K21.9 Gastro-esophageal reflux disease without esophagitis; Z87.891 Personal history of nicotine dependence; Z96.642 Presence of left artificial hip joint; I25.10 Atherosclerotic heart disease of native coronary artery without angina pectoris; M19.90 Unspecified osteoarthritis, unspecified site; F29 Unspecified psychosis not due to a substance or known physiological condition; R73.03 Prediabetes; I50.9 Heart failure, unspecified; B96.4 Proteus (mirabilis) (morganii) as the cause of diseases classified elsewhere
CPT/HCPCS: 36415; 71010-TC; 80048-TC; 80053-TC; 80061-TC; 80076-TC; 80164-TC; 80305; 81000-TC; 83605-TC; 83735-TC; 84100-TC; 84484-TC; 85025-TC; 87040-TC; 87081-TC; 87086-TC; 87186-TC; 93307-TC; 97001-TC; 97116-TC; 97530-TC; A4606; G0480; J0696; J1200; J1630; J1650; J2060; J7030; Q0162; Z7610

== ENCOUNTER 2018-12-10 14:20 | Inpatient (IN) | payer MEDICARE, OTHER ==
[~2018-12-10] VITALS: Ht 162.6 cm; Wt 55.8 kg
[~2018-12-10 14:20] MED LIST: ACET325T53 PO; AMLO5TAB4 PO; ASPI-1169 PO; CLON-418 PO; HYDR-4077 PO; MECL12.582 PO; METO25TA6 PO; ONDA4TAB8 SL; PANT40TA2 PO
--- NOTE | 2018-12-10 14:38 | NUR ---
PT [facility] TO ED BED 12 FOR INCREASING AGITATION, REFUSING MEDS, PT IS AAOX1, NOT IN RESPIRATORY DISTRESS, HOOKED TO MONITOR, KEPT RESTED AND COMFORTABLE, WILL CONTINUE TO MONITOR.
--- NOTE | 2018-12-10 14:50 | NUR ---
SEEN AND EXAMINED BY .
[2018-12-10] MEDS ORDERED: FLUO10TA PO (15:00)
[2018-12-10] MEDS ORDERED: DIVA125C5 PO (15:00)
[2018-12-10] MEDS ORDERED: MAGN400O6 PO (15:00)
[2018-12-10] MEDS ORDERED: ACET1TAB12 PO (15:00)
[2018-12-10] MEDS ORDERED: PRED5DRO16 LEFTEYE (15:00)
[2018-12-10] MEDS ORDERED: LACT10SO PO (15:00)
[2018-12-10] MEDS ORDERED: ATOR40TA PO (15:00)
[2018-12-10] MEDS ORDERED: LOSA50TA39 PO (15:00)
[2018-12-10] MEDS ORDERED: ASCO500T9 PO (15:00)
[2018-12-10] MEDS ORDERED: DICL100G26 TP (15:00)
[2018-12-10] MEDS ORDERED: LORA0.5T PO (15:00)
[2018-12-10] MEDS ORDERED: BROM3DRO LEFTEYE (15:00)
[2018-12-10] MEDS ORDERED: ONDA4TAB10 PO (15:00)
[2018-12-10] MEDS ORDERED: NITR100C PO (15:00)
[2018-12-10] MEDS ORDERED: OLANZAPINE 10 MG VIAL IM ONE ×2 (15:00→15:01)
[2018-12-10] MEDS ORDERED: POLY17PO4 PO (15:00)
[2018-12-10] MEDS ORDERED: NEOM7.5D3 RIGHTEYE (15:00)
[2018-12-10] MEDS ORDERED: CARB-93 PO (15:00)
[2018-12-10] MEDS ORDERED: DIPH50CA4 PO (15:00)
[2018-12-10] MEDS ORDERED: OFLO5DRO5 LEFTEYE (15:00)
[2018-12-10] MEDS ORDERED: DOCU-141 PO (15:00)
[2018-12-10] MEDS ORDERED: CALC-7 PO (15:00)
--- NOTE | 2018-12-10 15:05 | NUR ---
URINE SPECIMEN COLLECTED AND SENT TO LAB.
[2018-12-10 15:13] LABS: BILIRUBIN,URINE SMALL (NEGATIVE); BLOOD, URINE Trace-intact Ery/uL (NEGATIVE); COLOR,URINE Yellow (YELLOW); KETONES,URINE 40 (NEGATIVE); LEUKOCYTE ESTERASE ,URINE Negative (NEGATIVE); NITRITE, URINE Negative (NEGATIVE); PROTEIN,URINE 100 mg/dl (NEGATIVE); UGLUCOSE Negative (NEGATIVE); UROBILINOGEN,URINE 0.2 EU/dL (0.2)
--- NOTE | 2018-12-10 15:14 | NUR ---
IV LINE ESTABLISHED, BLOOD DRAWNED AND SENT TO LAB.
[2018-12-10 15:23] LABS: APPEARANCE,URINE HAZY (CLEAR); BACTERIA,URINE Few /HPF (None Seen); SQUAMOUS EPITHELIAL CELL,UR Moderate /HPF (None Seen)
[2018-12-10 15:24] LABS: BASOPHILS % (AUTO) 0.6 % (0.0-2.0); EOSINOPHILS % (AUTO) 0.5 % (0.0-6.0); HEMATOCRIT 36 % (33-45); HEMOGLOBIN 12.3 g/dL (11.5-14.8); LYMPHOCYTES # (AUTO) 1.7 /CMM (0.8-4.8); LYMPHOCYTES % (AUTO) 22.3 % (20.0-44.0); MEAN CORPUSCULAR HGB CONC 34 g/dl (31.0-36.0); MEAN CORPUSCULAR VOLUME 92 fL (82-100); MONOCYTES % (AUTO) 13.1 % (2.0-12.0); NEUTROPHILS # (AUTO) 4.8 /CMM (1.8-8.9); NEUTROPHILS % (AUTO) 63.5 % (43.0-81.0); PLATELET COUNT (AUTO) 202 /CMM (150-450); RED BLOOD CELL COUNT(AUTO) 3.96 MIL/uL (4.0-5.2); WHITE BLOOD COUNT (AUTO) 7.6 K/uL (4.3-11.0)
[2018-12-10] MEDS ORDERED: IV NS 0.9% 500 ML BAG IV ONE (15:30)
[2018-12-10 15:35] LABS: CALCIUM, SERUM 9.1 mg/dL (8.5-10.1); CARBON DIOXIDE 24 mmol/L (21-32); CHLORIDE 105 mmol/L (98-107); CREATININE 1.2 mg/dL (0.6-1.3); GLUCOSE 157 mg/dL (74-106); POTASSIUM 3.3 mmol/L (3.5-5.1); SODIUM SERUM 145 mmol/L (136-145); UREA NITROGEN, BLOOD 20 mg/dL (7-18)
[2018-12-10 15:40] LABS: ALANINE AMINOTRANSFERASE 30 U/L (12-78); ALBUMIN 3.5 g/dL (3.4-5.0); ALKALINE PHOSPHATASE 63 U/L (46-116); ASPARTATE AMINOTRANSFERASE 17 U/L (15-37); BILIRUBIN,DIRECT 0.2 mg/dL (0.0-0.2); BILIRUBIN,TOTAL 0.8 mg/dL (0.2-1.0); TOTAL PROTEIN, SERUM 7.5 g/dL (6.4-8.2)
[2018-12-10 15:41] LABS: ALCOHOL, BLOOD < 3 mg/dL (0-0); SALICYLATE < 2.8 mg/dL (2.8-20.0)
--- NOTE | 2018-12-10 15:56 | NUR ---
LACTIC 4.0
[2018-12-10] MEDS ORDERED: AZTREONAM 1 G in IV NS 0.9% 100 ML IV ONE (16:30)
[2018-12-10] MEDS ORDERED: VANCOMYCIN 1 GM in IV D5W 250 ML IV ONE (16:30)
[2018-12-10] MEDS ORDERED: LEVOFLOXACIN 750 MG /D5W 150ML 150 ML IV ONE ×2 (16:30→17:15)
[2018-12-10] MEDS ORDERED: IV NS 0.9% 1,000 ML BAG IV ONE (16:30)
--- NOTE | 2018-12-10 16:51 | NUR ---
CALLED FOR BED, ARJUN IN MOVE SHEET, GOING TO BED 119-1
[2018-12-10 18:00] VITALS: BP 130/75
--- NOTE | 2018-12-10 18:30 | NUR ---
RN NOTES PATIENT WAS BROUGHT TO THE UNIT VIA GURNEY FROM THE ED. SHE WAS BROUGHT TO THE ED FROM [facility] FOR INCREASED AGITATION AND REFUSAL OF MEDICATIONS, DIAGNOSED SEPTIC SHOCK. LACTIC ACID LEVEL WAS 4.0. REPORT WAS RECEIVED FROM ALEISHA RIVERA. PATIENT IS RESTLESS AND COMBATIVE, YELLING PROFANITIES. SHE IS AOX1, DOES NOT FOLLOW COMMANDS. PATIENT HAS AN 18G SALINE LOCK ON RFA, PATENT. PATIENTS GOWN AND LINENS HAVE BEEN CHANGED. BED IS IN LOWEST AND LOCKED POSITION, CALL LIGHT WITHIN REACH, SAFETY MEASURES IN PLACE. PATIENT IS ON ROOM AIR, O2 SAT AT 96%. SHE IS NOW RESTING QUIETLY. WILL ENDORSE TO COMMERCIAL APPRAISER RN.
--- NOTE | 2018-12-10 18:35 | NUR ---
RN NOTES NOTIFIED DR. RAUL CAT OF PATIENT'S ADMISSION. DR CAT SAID HE IS GOING TO COME TONIGHT TO SEE PATIENT AND PUT IN ORDERS.
--- NOTE | 2018-12-10 18:39 | NUR ---
SPOKE WITH JERRICA SIMON DOESNOT WANT TO GIVE ADMITTING ORDERS SINCE HE DIDNOT RECEIVED ANY NOTIFICATION FROM ER. PER ER IT IS PIPPA CAT,ADMITTING WILL SEND NEW PAPAER WORK.
[2018-12-10 18:43] VITALS: BP 130/75
--- NOTE | 2018-12-10 18:53 | NUR ---
NOTIFIED PRIMARY RN TO OBTAIN ORDERS FROM DR. CAT.WILL ENDORSE TO NIGHT MANAGER CLIENT SUPPORT TO FF.UP.
[2018-12-10] MEDS ORDERED: ONDANSETRON HCL/PF 4 MG/2 ML VIAL IV PRN (20:00)
--- NOTE | 2018-12-10 20:00 | NUR ---
RN NOTES RECEIVED PATIENT REPORT FROM AM RN. PATIENT IS RESTLESS AND COMBATIVE, YELLING, TALKING TO HERSELF . SHE IS AOX1, DOES NOT FOLLOW COMMANDS. PATIENT HAS AN 18G SALINE LOCK ON RFA, REDDENED, INFILTRATED . BED IS IN LOWEST AND LOCKED POSITION, CALL LIGHT WITHIN REACH, SAFETY MEASURES IN PLACE. PATIENT IS ON ROOM AIR, O2 SAT AT 97%. MD SWARTZ IS AT THE BEDSIDE TO ASSESS THE PATIENT AND NEW ORDERS WILL BE IN PLACE IN PLACE . PER MD CAT ORDER PATIENT HAS BEEN PLACED ON BILATERAL SOFT WRIST RESTRAINTS. ALL SAFETY PRECAUTIONS ARE IN PLACE, BED IN LOW, LOCKED POSITION, CALL LIGHT IN PLACE. WILL CONTINUE TO MONITOR PATIENT CLOSELY.
[2018-12-10] MEDS: DIVALPROEX SODIUM 125 MG TABLET.DR PO SCH ×2 (21:00→21:41)
[2018-12-10] MEDS: CARBIDOPA/LEVODOPA 25/100 MG 1 UDTAB PO SCH ×2 (21:00→21:41)
[2018-12-10] MEDS: METOPROLOL TARTRATE 50 MG TABLET PO SCH ×2 (21:00→21:42)
--- NOTE | 2018-12-10 21:00 | NUR ---
rn notes PATIENT IS PSYCHOTIC , SCREAMING AND TALKING TO HERSELF AT THIS MOMENT. PATIENT IS REFUSING ALL HER PO MEDICATIONS .MD CAT NOTIFIED AND NO NEW ORDERS FOR NOW.
[2018-12-10] MEDS: IV NS 0.9% 1,000 ML IV SCH (21:39)
[2018-12-10] MEDS: MEROPENEM 500 MG in IV NS 0.9% 50 ML IV SCH (21:39)
[2018-12-10] MEDS: ATORVASTATIN 40 MG TABLET PO SCH ×2 (21:41→22:00)
[2018-12-10] MEDS: ENOXAPARIN SODIUM 30 MG/0.3 ML DISP.SYRIN SQ SCH (21:41)
[2018-12-10] MEDS: HALOPERIDOL LACTATE INJ 5 MG/ML VIAL IM PRN (23:08)
--- NOTE | 2018-12-10 23:10 | NUR ---
RN NOTES PATIENT IS AGITATED AND BEING PSYCHOTIC. PER MD ORDER HALDOL 1MG IM HAS BEEN ADMINISTERED. WILL CONTINUE TO MONITOR PATIENT CLOSELY.
[2018-12-11] MEDS: hydrALAZINE HCL IV 20 MG VIAL IV PRN (04:15)
--- NOTE | 2018-12-11 04:15 | NUR ---
RN NOTES PATIENT'S B/P 175/940 HR 84. IVP HYDRALAZINE 10MG HAS BEEN ADMINISTERED. WILL RECHECK B/P IN 20MINUTES.
--- NOTE | 2018-12-11 04:35 | NUR ---
RN NOTES B/P RECHECKED AND IT'S 144/78 WITH HR 105.
[2018-12-11] MEDS: HALOPERIDOL LACTATE INJ 5 MG/ML VIAL IM PRN ×3 (05:10→16:18)
--- NOTE | 2018-12-11 05:22 | NUR ---
RN NOTES PATIENT IS AGITATED AND BEING PSYCHOTIC, PATIENT IS SCREAMING AND HR IS ABOVE 100BPM. PER MD ORDER HALDOL 1MG IM HAS BEEN ADMINISTERED AT 0500 . WILL CONTINUE TO MONITOR PATIENT CLOSELY.
[2018-12-11 07:11] LABS: BASOPHILS % (AUTO) 0.4 % (0.0-2.0); EOSINOPHILS % (AUTO) 0.2 % (0.0-6.0); HEMATOCRIT 33 % (33-45); HEMOGLOBIN 11.2 g/dL (11.5-14.8); LYMPHOCYTES # (AUTO) 0.9 /CMM (0.8-4.8); LYMPHOCYTES % (AUTO) 13.3 % (20.0-44.0); MEAN CORPUSCULAR HGB CONC 34 g/dl (31.0-36.0); MEAN CORPUSCULAR VOLUME 91 fL (82-100); MONOCYTES # (AUTO) 0.8 /CMM (0.1-1.30); MONOCYTES % (AUTO) 12.5 % (2.0-12.0); NEUTROPHILS # (AUTO) 4.8 /CMM (1.8-8.9); NEUTROPHILS % (AUTO) 73.6 % (43.0-81.0); PLATELET COUNT (AUTO) 189 /CMM (150-450); RED BLOOD CELL COUNT(AUTO) 3.58 MIL/uL (4.0-5.2); WHITE BLOOD COUNT (AUTO) 6.6 K/uL (4.3-11.0)
[2018-12-11 07:23] LABS: ALANINE AMINOTRANSFERASE 25 U/L (12-78); ALBUMIN 3.1 g/dL (3.4-5.0); ALKALINE PHOSPHATASE 56 U/L (46-116); ASPARTATE AMINOTRANSFERASE 15 U/L (15-37); BILIRUBIN,TOTAL 0.7 mg/dL (0.2-1.0); CALCIUM, SERUM 8.5 mg/dL (8.5-10.1); CARBON DIOXIDE 27 mmol/L (21-32); CHLORIDE 108 mmol/L (98-107); CREATININE 0.9 mg/dL (0.6-1.3); GLUCOSE 112 mg/dL (74-106); MAGNESIUM 1.7 mg/dL (1.8-2.4); POTASSIUM 3.4 mmol/L (3.5-5.1); SODIUM SERUM 144 mmol/L (136-145); TOTAL PROTEIN, SERUM 6.7 g/dL (6.4-8.2); UREA NITROGEN, BLOOD 15 mg/dL (7-18)
[2018-12-11] MEDS: PANTOPRAZOLE 40 MG TABLET.DR PO SCH (07:30)
--- NOTE | 2018-12-11 07:30 | NUR ---
RN AM SHIFT NOTE PATIENT IS SCREAMING, MUMMBLING AND GARBLED WORDS. FORMS COMPLETE SENTENCES BUT NOTHNG MAKES SENSE. ANGRY AND AGGRESSIVE, SCRATING AT RN WHILE CHECKING SKIN AND IV. MANAGER OF ADMINISTRATION MADE AWARE OF AGGRESIVE BEHAVIOR. SAFETY MEASURES IN PLACE, PULSES CHECKED AND EXTREMETIES ARE WNL CAP REFILL PRESENT AND WARM TO TOUCH. TURN AND REPOSITION AND CHECK PULSES THROUGH OUT SHIFT. PATIENT REFUSED ANY BREAKFAST AND SPIT OUT AT THE MANAGER OF ADMINISTRATION. RN WILL ATTEMTP TO GIVE PO MEDICATIONS BUT WILL NOT EVEN EAT. SAFETY MEASURES IN PLACE.
[2018-12-11 08:00] VITALS: BP 131/71
[2018-12-11] MEDS: METOPROLOL TARTRATE 50 MG TABLET PO SCH ×2 (08:32→21:52)
[2018-12-11] MEDS: ASPIRIN 81 MG TAB.CHEW PO SCH (08:32)
[2018-12-11] MEDS: DIVALPROEX SODIUM 125 MG TABLET.DR PO SCH ×2 (08:32→21:52)
[2018-12-11] MEDS: DOCUSATE SODIUM 100 MG CAPSULE PO SCH ×2 (08:32→16:18)
[2018-12-11] MEDS: CARBIDOPA/LEVODOPA 25/100 MG 1 UDTAB PO SCH ×4 (08:33→21:51)
--- NOTE | 2018-12-11 09:00 | NUR ---
RN NOTE RN ATTMEPT TO GIVE PATIENT PO, AND WILL NOT SWALLOW. SPIT OUT EVERY ATTMEPT. NO PO MEDS WERE GIVEN PATIENT REFUSED. SAFETY MEASURES IN PLACE.
[2018-12-11] MEDS: MEROPENEM 500 MG in IV NS 0.9% 50 ML IV SCH ×2 (10:05→21:45)
[2018-12-11] MEDS: IV NS 0.9% 1,000 ML IV SCH (10:54)
[2018-12-11] MEDS ORDERED: IV D5/0.45 NACL 1,000 ML IV ONE (14:30)
--- NOTE | 2018-12-11 15:13 | NUR ---
RN NOTE IV HYDRATION PO INTAKE POOR PO RODEO CLOWN CONTACTED MD , CHANGE FLUIDS TO D5 1/2 NS. PATIENT REFUSING TO TAKE PO MEDICATION IN THE AM. PATIENT TOOK LEVODOPA TODAY BY MOUTH AND ATE 50% OF CLEAR LIQUID DIET. PATIENT IS ASLEEP AND LESS AGITATED THIS AFTERNOON. MD AWARE OF CONDITION , SAFETY MEASURES IN PLACE CONTINUE TO MONITOR.
--- NOTE | 2018-12-11 18:24 | NUR ---
RN CLOSING NOTE PATIENT GIVEN IM DOSE EARLIER OF HALDOL PER MD ORDER DUE TO SCREAMING YELLING CURSING AND AGGRESSIVE BEHAVIOR. MEDICATION IS HAS BEEN EFFECTIVE. SHE IS CALM NO CURRENT AGGRESSION AND FOWL LANGUAGE NOTED. ASSESS RESTRAINTS AND PULSES EVERY HOUR AND DOCUMENT, COLOR AND CIRCULATION IS WNL. PATIENT WAS REPOSITIONED EVERY 2 HOURS, IV PATENT INTACT AND SAFETY PRECAUTIONS IN PLACE. PSYCH CONSULTATION WAS PUT IN, AT THIS TIME NO PSYCH MD HAS ARRIVED, MD AWARE OF PSYCH CONSULT. CONTINUE TO MONITOR AND ENCOURAGE PO INTAKE, SAFETY PRECAUTIONS.
[2018-12-11 20:00] VITALS: BP 136/57
[2018-12-11] MEDS: Magnesium 1GM/D5W 100ML PREMIX 100 ML IV SCH ×2 (21:42→23:37)
[2018-12-11] MEDS: ATORVASTATIN 40 MG TABLET PO SCH (21:51)
[2018-12-11] MEDS: ENOXAPARIN SODIUM 30 MG/0.3 ML DISP.SYRIN SQ SCH (21:54)
[2018-12-12] VITALS: BP 126/57
[2018-12-12] MEDS: IV NS 0.9% 1,000 ML IV SCH ×2 (02:31→15:40)
[2018-12-12 04:00] VITALS: BP 121/52
[2018-12-12 07:39] LABS: CALCIUM, SERUM 8.2 mg/dL (8.5-10.1); CARBON DIOXIDE 26 mmol/L (21-32); CHLORIDE 109 mmol/L (98-107); CREATININE 0.9 mg/dL (0.6-1.3); GLUCOSE 127 mg/dL (74-106); MAGNESIUM 2.1 mg/dL (1.8-2.4); SODIUM SERUM 145 mmol/L (136-145); UREA NITROGEN, BLOOD 11 mg/dL (7-18)
[2018-12-12 07:46] LABS: BASOPHILS % (AUTO) 0.6 % (0.0-2.0); EOSINOPHILS % (AUTO) 2.9 % (0.0-6.0); HEMATOCRIT 30 % (33-45); HEMOGLOBIN 10.3 g/dL (11.5-14.8); LYMPHOCYTES # (AUTO) 1.4 /CMM (0.8-4.8); LYMPHOCYTES % (AUTO) 24.7 % (20.0-44.0); MEAN CORPUSCULAR HGB CONC 34 g/dl (31.0-36.0); MEAN CORPUSCULAR VOLUME 91 fL (82-100); MONOCYTES # (AUTO) 0.7 /CMM (0.1-1.30); MONOCYTES % (AUTO) 11.3 % (2.0-12.0); NEUTROPHILS # (AUTO) 3.5 /CMM (1.8-8.9); NEUTROPHILS % (AUTO) 60.5 % (43.0-81.0); PLATELET COUNT (AUTO) 187 /CMM (150-450); RED BLOOD CELL COUNT(AUTO) 3.32 MIL/uL (4.0-5.2); WHITE BLOOD COUNT (AUTO) 5.8 K/uL (4.3-11.0)
[2018-12-12 07:49] LABS: POTASSIUM 2.8 mmol/L (3.5-5.1)
[2018-12-12 08:00] VITALS: BP 145/58
[2018-12-12] MEDS: METOPROLOL TARTRATE 50 MG TABLET PO SCH ×2 (09:00→21:41)
[2018-12-12] MEDS: CARBIDOPA/LEVODOPA 25/100 MG 1 UDTAB PO SCH ×4 (09:40→21:39)
[2018-12-12] MEDS: ASPIRIN 81 MG TAB.CHEW PO SCH (09:40)
[2018-12-12] MEDS: DOCUSATE SODIUM 100 MG CAPSULE PO SCH ×2 (09:40→18:11)
[2018-12-12] MEDS: MEROPENEM 500 MG in IV NS 0.9% 50 ML IV SCH ×2 (09:40→21:34)
[2018-12-12] MEDS: DIVALPROEX SODIUM 125 MG TABLET.DR PO SCH ×2 (09:41→21:37)
[2018-12-12] MEDS: PANTOPRAZOLE 40 MG TABLET.DR PO SCH (09:41)
[2018-12-12] MEDS ORDERED: POTASSIUM CHLORIDE 20 MEQ TAB.PRT.SR PO ONE ×2 (10:00→12:30)
[2018-12-12] MEDS: ACETAMINOPHEN 325 MG TABLET PO PRN (18:11)
[2018-12-12] MEDS: ENSURE ENLIVE CHOC 237 ML CAN PO SCH (18:30)
[2018-12-12 20:00] VITALS: BP 135/91
[2018-12-12] MEDS: ENOXAPARIN SODIUM 30 MG/0.3 ML DISP.SYRIN SQ SCH (21:40)
[2018-12-12] MEDS: ATORVASTATIN 40 MG TABLET PO SCH (21:41)
[2018-12-12] MEDS: risperiDONE 0.25 MG TABLET PO SCH (21:59)
[2018-12-13 04:00] VITALS: BP 148/71
--- NOTE | 2018-12-13 06:00 | NUR ---
RN NOTES IN BED WITH NO APPARENT DISTRESS. BREATHING EVEN AND UNLABORED. NO PHYSICAL MANIFESTATION OF PAIN OR DISCOMFORT. ALERT WITH CONFUSION. OBSERVED PATIENT TALKING TO SELF. SEEN BY DR SHEILA PEREZ WITH ORDERS FOR RESPIRDAL 0.25 BID. NO SIGNIFICANT CHANGE OF CONDITION. KEPT CLEAN AND DRY. WILL ENDORSE TO NEXT SHIFT FOR CONTINUITY OF CARE.
[2018-12-13] MEDS: IV NS 0.9% 1,000 ML IV SCH (06:13)
[2018-12-13 07:20] LABS: BASOPHILS % (AUTO) 0.5 % (0.0-2.0); EOSINOPHILS % (AUTO) 3.5 % (0.0-6.0); HEMATOCRIT 31 % (33-45); HEMOGLOBIN 10.4 g/dL (11.5-14.8); LYMPHOCYTES % (AUTO) 21.3 % (20.0-44.0); MEAN CORPUSCULAR HGB CONC 34 g/dl (31.0-36.0); MEAN CORPUSCULAR VOLUME 91 fL (82-100); MONOCYTES # (AUTO) 0.8 /CMM (0.1-1.30); MONOCYTES % (AUTO) 8.9 % (2.0-12.0); NEUTROPHILS # (AUTO) 6.3 /CMM (1.8-8.9); NEUTROPHILS % (AUTO) 65.8 % (43.0-81.0); PLATELET COUNT (AUTO) 204 /CMM (150-450); RED BLOOD CELL COUNT(AUTO) 3.36 MIL/uL (4.0-5.2); WHITE BLOOD COUNT (AUTO) 9.5 K/uL (4.3-11.0)
--- NOTE | 2018-12-13 07:20 | NUR ---
RECIVED REPORT FROM MEDICAL SERVICES COORDINATOR NURSE. PATIENT IN BED WITH NO APPARENT DISTRESS. ALERT WITH CONFUSION. OBSERVED PATIENT TALKING TO SELF.
[2018-12-13 07:49] LABS: CALCIUM, SERUM 8.1 mg/dL (8.5-10.1); CARBON DIOXIDE 25 mmol/L (21-32); CHLORIDE 112 mmol/L (98-107); CREATININE 0.9 mg/dL (0.6-1.3); GLUCOSE 99 mg/dL (74-106); MAGNESIUM 1.8 mg/dL (1.8-2.4); POTASSIUM 3.8 mmol/L (3.5-5.1); SODIUM SERUM 148 mmol/L (136-145); UREA NITROGEN, BLOOD 13 mg/dL (7-18)
[2018-12-13 07:53] VITALS: BP 180/77
[2018-12-13] MEDS: ENSURE ENLIVE CHOC 237 ML CAN PO SCH ×2 (08:00→16:46)
--- NOTE | 2018-12-13 09:00 | NUR ---
PATIENT TRIED TO HIT ME WHILE ADMINISTRATING MORNING MEDICATION. RESTRAINTS ARE STILL APPLIED.
[2018-12-13] MEDS ORDERED: IV NS 0.9% 1,000 ML IV PRN (10:00)
[2018-12-13] MEDS: PANTOPRAZOLE 40 MG TABLET.DR PO SCH (10:18)
[2018-12-13] MEDS: MEROPENEM 500 MG in IV NS 0.9% 50 ML IV SCH ×2 (10:19→20:55)
[2018-12-13] MEDS: CARBIDOPA/LEVODOPA 25/100 MG 1 UDTAB PO SCH ×4 (10:19→20:57)
[2018-12-13] MEDS: ASPIRIN 81 MG TAB.CHEW PO SCH (10:19)
[2018-12-13] MEDS: METOPROLOL TARTRATE 50 MG TABLET PO SCH ×2 (10:19→20:57)
[2018-12-13] MEDS: risperiDONE 0.25 MG TABLET PO SCH ×2 (10:19→20:57)
[2018-12-13] MEDS: POTASSIUM CHLORIDE 20 MEQ TAB.PRT.SR PO SCH (10:19)
[2018-12-13] MEDS: DOCUSATE SODIUM 100 MG CAPSULE PO SCH ×2 (10:19→16:46)
[2018-12-13] MEDS: DIVALPROEX SODIUM 125 MG TABLET.DR PO SCH ×2 (10:19→20:57)
--- NOTE | 2018-12-13 12:00 | NUR ---
PATIENT IS IN NO DISTRESS, ALL AFTERNOON MEDICATION WERE GIVEN, RESTRAINTS HAVE BEEN CHECKED, RANGE OF MOTION COMPLETED, PATIENT IS SPEAKING OUT LOUD TO HERSELF, EATING AND DRINKING PLENTY FLUIDS.
--- NOTE | 2018-12-13 15:00 | NUR ---
PATIENT IS AWAKE AND ALERT, ATE LUNCH, BLADDER SCAN COMPLETED, RESTRAINTS CHECKED WITH RANGE OF MOTION.
[2018-12-13 16:00] VITALS: BP 160/84
[2018-12-13] MEDS ORDERED: POLYETHYLENE GLYCOL 3350 17 GM POWD.PACK PO PRN (16:00)
[2018-12-13] MEDS ORDERED: MAGNESIUM HYDROXIDE 30 ML UDC PO PRN (16:00)
[2018-12-13] MEDS: AMLODIPINE BESYLATE 5 MG TABLET PO SCH (16:46)
--- NOTE | 2018-12-13 19:25 | NUR ---
RN PM OPENING NOTE BEDSIDE REPORT RECIEVED FROM GENI MORAES. PATIENT SEEN IN BED IS CALM NO CURRENT AGGRESSION. ASSESSESED RESTRAINTS AND PULSES PRESENT WITH GOOD COLOR, COLOR AND CIRCULATION IS WNL. PATIENT COMPLAINING ABOUT HAVING TO BE RESTRAINED. PATIENT DENIES HAVING CONFRONTATION WITH GENI THIS AM STATES "I HAVENT HIT ANYBODY." PATIENT RAMBLING WITH POOR THOUGHT PROCES. POC REVIEWED CONCERNS ADDRESSED. CRITERIA ON HOW TO RELEASE THE RESTRAINTS REVIEWED. PATEINT SAFETY PRECAUTIONS IN PLACE. BED DOWN LOCKED CALL LIGHT WITHIN REACH.
--- NOTE | 2018-12-13 19:31 | NUR ---
REPORT GIVEN TO CODY VIA SBAR ALL QUESTIONS ANSWERED
[2018-12-13 20:00] VITALS: BP_SYST 170; BP_SYST 99; BP_DIAS 53; BP_DIAS 68
[2018-12-13] MEDS: ENOXAPARIN SODIUM 30 MG/0.3 ML DISP.SYRIN SQ SCH (20:52)
[2018-12-13] MEDS: hydrALAZINE HCL IV 20 MG VIAL IV PRN (20:58)
[2018-12-13] MEDS: ATORVASTATIN 40 MG TABLET PO SCH (21:09)
[2018-12-13] MEDS: ACETAMINOPHEN 325 MG TABLET PO PRN (22:36)
[2018-12-14] VITALS: BP 116/45
--- NOTE | 2018-12-14 03:40 | NUR ---
bilat wrist restraints discontinued. patient alert and oriented x2 reoriented to time. patient has been cooperative all shift. reviewed with patient that if she become combative or if she removes medical equipment like the iv she may have to be restrained again. patient denies being combative yesterday. patient states, "I won't remove my iv, becaause i want to live and it may save my life." patient states she thinks shes going to here. patient reinforced that she is getting better and that she is safe here. reviewed poc. questions concens addressed. bilat wrist restraints removed. order dc'd
[2018-12-14 04:00] VITALS: BP 134/68
[2018-12-14] MEDS: PANTOPRAZOLE 40 MG TABLET.DR PO SCH (06:03)
--- NOTE | 2018-12-14 06:30 | NUR ---
RN PM CLOSING NOTE PATIENT SEEN IN BED IS CALM NO CURRENT AGGRESSION. PATIENT NO LONGER IN RESTRAINTS IS COOPERATING WITH CARE AND IV SITE INTACT PATENT TO RIGHT FOREARM #22 SL. PATIENT ALERT ORIENTED X2 PATIENT STILL RAMBLES WITH POOR THOUGHT PROCESS. KEEPS REPEATEDLY TALKING OF WANTING TO FINGERPAINT STRAY CATS AND SPEAKS OF SOMEONE PLAYING MUSIC ALL NIGHT THAT WAS KEEPING HER FROM SLEEPING. NO MUSC WAS PLAYED AT ALL IN THE NURSING STATION. TV WAS ON AND TURNED OFF. POC REVIEWED CONCERNS ADDRESSED. PATEINT IN BED SRX3. SAFETY PRECAUTIONS IN PLACE. BED DOWN LOCKED CALL LIGHT WITHIN REACH. BED ALARM IS ACTIVE.
--- NOTE | 2018-12-14 07:35 | NUR ---
RN NOTE: RECEIVED PATIENT IN BED, ASLEEP, BUT AROUSABLE WITH VERBAL CUES AND TACTILE STIMULI. RESPIRATION EVEN AND UNLABORED SATURATING 98% IN ROOM AIR. HOB ELEVATED. BED ALARMED AND LOCKED AT ALL TIMES. BED ON LOWEST POSITION AT ALL TIMES. (R) FOREARM IV SITE NOTED PATENT AND INTACT. CALL LIGHT WITHIN REACH. NEEDS ANTICIPATED.
[2018-12-14 08:00] VITALS: BP 126/72
[2018-12-14] MEDS: ENSURE ENLIVE CHOC 237 ML CAN PO SCH ×2 (08:22→17:37)
[2018-12-14] MEDS: MEROPENEM 500 MG in IV NS 0.9% 50 ML IV SCH ×2 (08:36→20:25)
[2018-12-14] MEDS: risperiDONE 0.25 MG TABLET PO SCH ×2 (08:47→20:25)
[2018-12-14] MEDS: DOCUSATE SODIUM 100 MG CAPSULE PO SCH ×2 (09:24→17:36)
[2018-12-14] MEDS: METOPROLOL TARTRATE 50 MG TABLET PO SCH ×2 (09:24→21:00)
[2018-12-14] MEDS: DIVALPROEX SODIUM 125 MG TABLET.DR PO SCH ×2 (09:24→20:25)
[2018-12-14] MEDS: ASPIRIN 81 MG TAB.CHEW PO SCH (09:24)
[2018-12-14] MEDS: POTASSIUM CHLORIDE 20 MEQ TAB.PRT.SR PO SCH (09:24)
[2018-12-14] MEDS: AMLODIPINE BESYLATE 5 MG TABLET PO SCH (09:25)
[2018-12-14] MEDS: CARBIDOPA/LEVODOPA 25/100 MG 1 UDTAB PO SCH ×4 (09:25→20:25)
[2018-12-14 16:00] VITALS: BP 120/68
--- NOTE | 2018-12-14 16:30 | NUR ---
RN NOTE: PATIENT WAS EVALUATED BY THE PHYSICAL THERAPIST AND PER PT, THE PATIENT WAS A STANDBY ASSISTANCE AND PT WILL NOT BE FOLLOWED BY THE PHYSICAL THERAPIST AFTER THE EVALUATION.
--- NOTE | 2018-12-14 19:09 | NUR ---
RN NOTE: BEDSIDE REPORT WAS GIVEN TO PM SHIFT NURSE FOR CONTINUITY OF CARE. PATIENT REMAINED ASLEEP AND AROUSABLE WITH TACTILE AND VERBAL STIMULI. PATIENT REFUSED TO EAT DINNER AND SAID "I AM NOT HUNGRY." (R) FOREARM IV SITE REMAINED INTACT AND PATENT.
--- NOTE | 2018-12-14 19:30 | NUR ---
RN INITIAL NOTES: RECEIVED REPORT FORM MIRNA MORAES. PT IN BED, AWAKE, A/O X2, WITH RAMBLES, POOR THOUGHT, COOPERATIVE. APPEARS CALM AND COMFORTABLE, NO FACIAL GRIMACE NOTED. IV ACCESS PATENT AND FLUSHING WELL, ON HL. PT HAD PT EVAL TODAY, CAN AMBULATE WITH ASSIST TO BATHROOM. SAFETY PRECAUTIONS FOR FALL INITIATED, CALL LIGHT IN REACH, WILL CONTINUE MONITORING PT.
[2018-12-14 20:00] VITALS: BP 112/51
[2018-12-14] MEDS: ENOXAPARIN SODIUM 30 MG/0.3 ML DISP.SYRIN SQ SCH (20:25)
--- NOTE | 2018-12-14 20:36 | NUR ---
RN NOTES: DUE MEDS ADMINISTERED, PT DRINK ENSURE 100%
[2018-12-14 21:12] VITALS: BP 136/54
[2018-12-14] MEDS: ATORVASTATIN 40 MG TABLET PO SCH (21:14)
--- NOTE | 2018-12-15 04:00 | NUR ---
RN NOTES: PT REFUSED FOR CHECKING VS, YELLED AND STATED DON'T WAKE HER UP. EDUCATION PROVIDED TO PT
--- NOTE | 2018-12-15 05:00 | NUR ---
RN NOTES: REFUSED FOR VS CHECK, SUPERVISOR ORNAMENTAL IRONWORKING NOTIFIED
--- NOTE | 2018-12-15 05:50 | NUR ---
RN NOTES: PT REFUSED BLOOD DRAW, VERY UPSET BECAUSE ELECTRONICS SPECIALIST WOKE HER UP. INFORM MOHINDER ELECTRONICS SPECIALIST TO PLEASE COME BACK AFTER BREAKFAST TO DRAW BLOOD
--- NOTE | 2018-12-15 06:00 | NUR ---
RN NOTES: PT REFUSED FOR VS CHECK AT THIS TIME, EDUCATION PROVIDED TO PT.
--- NOTE | 2018-12-15 06:55 | NUR ---
RN CLOSING NOTES: PT IN BED, REMAINS A/O X2, ON RA RESPIRATIONS EVEN AND UNLABORED. IV ACCESS REMAINS PATENT AND FLUSHING WELL, ON HL. BLE KEPT OFFLOADED ON PILLOWS. VS REMAINS STABLE, NEEDS ATTENDED. POSSIBLE DC TODAY. SAFETY PRECAUTIONS FOR FALL REMAINS ENGAGED, CALL LIGHT IN REACH, WILL ENDORSE TO DAY RN FOR CONTINUITY OF CARE.
--- NOTE | 2018-12-15 07:05 | NUR ---
MS RN OPENING NOTES Report received at bedside. patient received in bed, awake and irritable d/t early blood draw. No SOB/labored breathing noted. Not in any type of distress. No facial grimacing or moaning noted. Safety measures in place. Will continue to monitor and assess patient.
[2018-12-15 08:00] VITALS: BP 173/83
--- NOTE | 2018-12-15 08:30 | NUR ---
MS RN NOTES - DELAYED ADMIN Patient refused to take medications at the moment. Patient continue to appear irritable.
--- NOTE | 2018-12-15 09:10 | NUR ---
MS RN NOTES Patient currently sleeping. Will continue to monitor and assess patient for readiness to take meds.
[2018-12-15] MEDS: MEROPENEM 500 MG in IV NS 0.9% 50 ML IV SCH ×2 (09:14→21:39)
[2018-12-15] MEDS: POTASSIUM CHLORIDE 20 MEQ TAB.PRT.SR PO SCH (09:17)
[2018-12-15] MEDS: PANTOPRAZOLE 40 MG TABLET.DR PO SCH (09:17)
[2018-12-15] MEDS: DIVALPROEX SODIUM 125 MG TABLET.DR PO SCH ×2 (09:18→21:38)
[2018-12-15] MEDS: AMLODIPINE BESYLATE 5 MG TABLET PO SCH (09:18)
[2018-12-15] MEDS: DOCUSATE SODIUM 100 MG CAPSULE PO SCH ×2 (09:18→17:10)
[2018-12-15] MEDS: ASPIRIN 81 MG TAB.CHEW PO SCH (09:18)
[2018-12-15] MEDS: CARBIDOPA/LEVODOPA 25/100 MG 1 UDTAB PO SCH ×4 (09:18→21:37)
[2018-12-15] MEDS: risperiDONE 0.25 MG TABLET PO SCH ×2 (09:18→21:41)
[2018-12-15] MEDS: METOPROLOL TARTRATE 50 MG TABLET PO SCH ×2 (09:18→21:38)
[2018-12-15] MEDS: ENSURE ENLIVE CHOC 237 ML CAN PO SCH ×2 (09:19→17:10)
--- NOTE | 2018-12-15 10:02 | NUR ---
MS RN REFUSAL NOTES Patient refuse blood draw x2 and refuse turn and reposition with diaper change. Will continue to convince and monitor patient
--- NOTE | 2018-12-15 14:45 | NUR ---
MS MORAES REFUSAL NOTES Patient refused to give blood for lab test for the 3rd time today. Will inform Addendum: 12/15/18 at 1454 by JANEEN VALDEZ RN Reji Siddiqui . Awaiting for call back Addendum: 12/15/18 at 6444 by JANEEN VALDEZ RN called back and made aware with no new order.
[2018-12-15 16:00] VITALS: BP 130/56
[2018-12-15] MEDS ORDERED: CRAN425C6 PO (16:44)
[2018-12-15] MEDS ORDERED: ASPI-605 PO (17:21)
[2018-12-15] MEDS ORDERED: OFLO5DRO5 LEFTEYE (17:21)
--- NOTE | 2018-12-15 18:47 | NUR ---
MS RN CLOSING NOTES Patient remained in bed, intermittently sleeping. Alert and oriented x1, verbally responsive. Denies any pain/discomfort. No facial grimacing or moaning noted. Have episodes of care and blood draw refusal - MD aware with no new order - just continue hospitalization for IV antibiotic therapy. Also, patient have episodes of irritability and hostility m/b yelling and cursing at staff. Patient refused to be turned and repositioned. No SOB/labored breathing noted. Not in any type of distress. All anticipated needs provided and met. Safety measures in place. Kept patient clean, dry and comfortable. Bed in lowest position with bed alarm on and call light within reach. Will continue to monitor and assess patient and endorse to oncoming shift nurse.
--- NOTE | 2018-12-15 19:55 | NUR ---
RN NOTES RECEIVED PATIENT AWAKE IN BED, RESTING COMFORTABLY, BREATHING EVEN AND NON LABORED, NO SIGNS OF ACUTE DISTRESS NOTED, SAFETY MEASURES IN PLACE, ASPIRATION PRECAUTION EMPHASIZE, BED IN LOW LOCKED POSITION, IV ACCESS INTACT AND PATENT ON HER RFA G#22 SL, ALL NEEDS ATTENDED WILL CONTINUE TO MONITOR ACCORDINGLY.
[2018-12-15 20:00] VITALS: BP 144/49
[2018-12-15] MEDS: ENOXAPARIN SODIUM 30 MG/0.3 ML DISP.SYRIN SQ SCH (21:37)
[2018-12-15] MEDS: ATORVASTATIN 40 MG TABLET PO SCH (22:04)
[2018-12-16 04:00] VITALS: BP 141/55
[2018-12-16 04:34] VITALS: BP 144/49
--- NOTE | 2018-12-16 07:25 | NUR ---
MS RN OPENING NOTES RECEIVED PT IN BED. ASLEEP, EASILY AROUSED, A/OX1. PT TOLERATING RA, WITH NO ACUTE RESPIRATORY DISTRESS. PT DENIES ANY PAIN OR DISCOMFORT AT THIS TIME. PT DENIES ANY QUESTIONS OR ANY CONCERNS AT THIS MOMENT. PIV TO RFA G22 SL, FLUSHED WITH NS, INTACT AND OPERATIONAL. PT KEPT COMFORTABLE. PT'S BED IN LOWEST, LOCKED POSITION WITH SR X3. CALL LIGHT KEPT WITHIN REACH. WILL CONTINUE PLAN OF CARE.
[2018-12-16 07:48] LABS: ALANINE AMINOTRANSFERASE 14 U/L (12-78); ALBUMIN 2.5 g/dL (3.4-5.0); ALKALINE PHOSPHATASE 48 U/L (46-116); ASPARTATE AMINOTRANSFERASE 24 U/L (15-37); BILIRUBIN,TOTAL 0.3 mg/dL (0.2-1.0); CALCIUM, SERUM 8.1 mg/dL (8.5-10.1); CARBON DIOXIDE 28 mmol/L (21-32); CHLORIDE 107 mmol/L (98-107); CREATININE 0.9 mg/dL (0.6-1.3); GLUCOSE 119 mg/dL (74-106); MAGNESIUM 1.4 mg/dL (1.8-2.4); POTASSIUM 3.4 mmol/L (3.5-5.1); SODIUM SERUM 144 mmol/L (136-145); TOTAL PROTEIN, SERUM 5.8 g/dL (6.4-8.2); UREA NITROGEN, BLOOD 15 mg/dL (7-18)
[2018-12-16 07:50] LABS: BASOPHILS % (AUTO) 0.6 % (0.0-2.0); EOSINOPHILS % (AUTO) 4.4 % (0.0-6.0); HEMATOCRIT 30 % (33-45); HEMOGLOBIN 10.4 g/dL (11.5-14.8); LYMPHOCYTES # (AUTO) 1.5 /CMM (0.8-4.8); LYMPHOCYTES % (AUTO) 22.7 % (20.0-44.0); MEAN CORPUSCULAR HGB CONC 35 g/dl (31.0-36.0); MEAN CORPUSCULAR VOLUME 90 fL (82-100); MONOCYTES # (AUTO) 0.7 /CMM (0.1-1.30); MONOCYTES % (AUTO) 11.1 % (2.0-12.0); NEUTROPHILS # (AUTO) 3.9 /CMM (1.8-8.9); NEUTROPHILS % (AUTO) 61.2 % (43.0-81.0); PLATELET COUNT (AUTO) 201 /CMM (150-450); RED BLOOD CELL COUNT(AUTO) 3.34 MIL/uL (4.0-5.2); WHITE BLOOD COUNT (AUTO) 6.4 K/uL (4.3-11.0)
[2018-12-16 08:00] VITALS: BP 148/59
[2018-12-16] MEDS: risperiDONE 0.25 MG TABLET PO SCH (08:23)
[2018-12-16] MEDS: PANTOPRAZOLE 40 MG TABLET.DR PO SCH (08:23)
[2018-12-16] MEDS: POTASSIUM CHLORIDE 20 MEQ TAB.PRT.SR PO SCH (08:49)
[2018-12-16] MEDS: MEROPENEM 500 MG in IV NS 0.9% 50 ML IV SCH (08:49)
[2018-12-16] MEDS: METOPROLOL TARTRATE 50 MG TABLET PO SCH (08:50)
[2018-12-16] MEDS: CARBIDOPA/LEVODOPA 25/100 MG 1 UDTAB PO SCH ×3 (08:50→17:00)
[2018-12-16] MEDS: DIVALPROEX SODIUM 125 MG TABLET.DR PO SCH (08:50)
[2018-12-16] MEDS: DOCUSATE SODIUM 100 MG CAPSULE PO SCH ×2 (08:50→17:00)
[2018-12-16] MEDS: ASPIRIN 81 MG TAB.CHEW PO SCH (08:50)
[2018-12-16] MEDS: AMLODIPINE BESYLATE 5 MG TABLET PO SCH (08:51)
[2018-12-16] MEDS: ENSURE ENLIVE CHOC 237 ML CAN PO SCH ×2 (09:03→17:00)
[2018-12-16] MEDS ORDERED: ACETAMINOPHEN W/ CODEINE#3 1 EA TABLET PO PRN (15:30)
[2018-12-16 16:00] VITALS: BP 150/70
--- NOTE | 2018-12-16 17:45 | NUR ---
MS PHARMACEUTICAL ENGINEER NOTES PT DISCHARGED BACK TO [facility]; REPORT GIVEN TO DARLINE MORAES. AWAKE, A/O X1. PT TOLERATING RA, WITH NO ACUTE RESPIRATORY DISTRESS. PIV TO RFA REMOVED, APPLIED PRESSURE DRESSING. NO PICTURES TAKEN FOR PT'S SKIN ISSUES, PT REFUSED AND SCREAMING. PT DENIES ANY PAIN OR DISCOMFORT. PT KEPT CLEAN AND DRY. ALL NEEDS AND CARE PROVIDED. DISCHARGE PAPERS AND INVENTORY LIST SIGNED BY ANOTHER RN/MIRNA. VITAL SIGNS STABLE BEFORE SHE LEFT THE UNIT. PT LEFT THE UNIT AT 1735. TRANSPORTED VIA GURNEY BY AMBULANCE WITH 2 PROFESSOR OF PSYCHIATRY. HOSPITALIST/DR CAT AWARE AND CN/KIM AWARE OF DISCHARGE.
--- NOTE | 2018-12-16 18:01 | NUR ---
CORE PILER NOTES PT DISCHARGED BACK TO [facility]; REPORT GIVEN TO DARLINE MORAES. AWAKE, A/O X1. PT TOLERATING RA, WITH NO ACUTE RESPIRATORY DISTRESS. PIV TO RFA REMOVED, APPLIED PRESSURE DRESSING. NO PICTURES TAKEN FOR PT'S SKIN ISSUES, PT REFUSED AND SCREAMING. PT DENIES ANY PAIN OR DISCOMFORT. PT KEPT CLEAN AND DRY. ALL NEEDS AND CARE PROVIDED. DISCHARGE PAPERS SIGNED BY CO WORKER ALL BELONGINGS WITH THE PT (ONLY SILVER WATCH; NO BRACELET PER DAUGHTER). VITAL SIGNS STABLE BEFORE SHE LEFT THE UNIT. PT LEFT THE UNIT AT 1710. TRANSPORTED VIA GURNEY BY AMBULANCE WITH 2 HAND HARDENER. HOSPITALIST/SLEEP TECHNOLOGIST/CC AWARE AND CN/KIM AWARE OF DISCHARGE. Addendum: 12/16/18 at 1803 by HEBER SWEENEY RN WRONG DOCUMENTATION. WRONG PT.
--- NOTE | 2018-12-16 19:40 | NUR ---
RN NOTES PATIENT AWAKE IN BED, RESTING COMFORTABLY, BREATHING EVEN AND NON LABORED, NO SIGNS OF ACUTE DISTRESS NOTED, SAFETY MEASURES IN PLACE, ASPIRATION PRECAUTION EMPHASIZE, BED IN LOW LOCKED POSITION, IV ACCESS INTACT AND PATENT ON HER RFA G#22 SL, ALL NEEDS ATTENDED AND MET, WILL ENDORSE TO AM NURSE FOR CONTINUITY OF CARE, POSSIBLE DISCHARGE TODAY.
== END 2018-12-16 17:40 | DRG 871 ==
LOC: ER 14:22 → TELE1 17:01 → MEDSG1 12-12 09:33
PROVIDERS: ADMIT Internal Medicine; ATTEND Internal Medicine
DX: A41.9 Sepsis, unspecified organism (principal); G92 Toxic encephalopathy; N39.0 Urinary tract infection, site not specified; E87.2 Acidosis; E87.0 Hyperosmolality and hypernatremia; N17.9 Acute kidney failure, unspecified; E86.0 Dehydration; G20 Parkinson's disease; I11.0 Hypertensive heart disease with heart failure; F29 Unspecified psychosis not due to a substance or known physiological condition; F39 Unspecified mood [affective] disorder; I25.10 Atherosclerotic heart disease of native coronary artery without angina pectoris; I50.9 Heart failure, unspecified; K21.9 Gastro-esophageal reflux disease without esophagitis; G89.4 Chronic pain syndrome; E87.6 Hypokalemia; M19.90 Unspecified osteoarthritis, unspecified site; D64.9 Anemia, unspecified; K59.00 Constipation, unspecified; Z87.440 Personal history of urinary (tract) infections
CPT/HCPCS: 36415; 71045-TC; 80048-TC; 80053-TC; 80076-TC; 80305; 81000-TC; 83605-TC; 83735-TC; 84484-TC; 85025-TC; 85730-TC; 87040-TC; 87081-TC; 97116-TC; 97530-TC; A4216; G0378; G0480; J0360; J1630; J1650; J1956; J2185; J2405; J3370; J3475; J3490; J7030; J7040; J7050; J7060